=== PATIENT | female | born 1950 | race Caucasian/White ===

== ENCOUNTER 2022-06-20 15:04 | Inpatient (IN) | payer MEDICARE, OTHER ==
[~2022-06-20] VITALS: Ht 167.6 cm; Wt 58.9 kg
[2022-06-20] MEDS ORDERED: EZET10TA21 PO (16:05)
[2022-06-20] MEDS ORDERED: LISI10TA22 PO (16:05)
[2022-06-20] MEDS ORDERED: HYDR12.55 PO (16:05)
[2022-06-20] MEDS ORDERED: SIMV10TA21 PO (16:05)
[2022-06-20] MEDS: NS 1,000 ML IV ONE (16:58)
[2022-06-20 17:01] LABS: BASO % 0.1 % (0.0-1.0); HEMATOCRIT 37.4 % (36.0-47.0); HEMOGLOBIN 12.2 g/dl (12.0-15.5); LYMPH # 0.9 10^3/uL (1.5-5.0); LYMPH % 8.7 % (24.0-44.0); MEAN CORPUSCULAR HEMOGLOBIN 32.7 pg (27.0-33.0); MEAN CORPUSCULAR HGB CONC 32.6 g/dl (32.0-36.5); MEAN CORPUSCULAR VOLUME 100.3 fl (80.0-96.0); MONO # 0.5 10^3/uL (0.0-0.8); MONO % 5.1 % (2.0-8.0); NEUTROPHILS # 8.9 10^3/uL (1.5-8.5); NEUTROPHILS % 85.5 % (36.0-66.0); PLATELET COUNT, AUTOMATED 126 10^3/uL (150-450); RED BLOOD COUNT 3.73 10^6/uL (4.00-5.40); WHITE BLOOD COUNT 10.4 10^3/uL (4.0-10.0)
[2022-06-20 17:14] LABS: INR 0.91; PROTHROMBIN TIME 12.4 SECONDS (12.5-14.5)
[2022-06-20 17:15] LABS: PARTIAL THROMBOPLASTIN TIME 29.4 SECONDS (24.8-34.2)
[2022-06-20] MEDS: METOPROLOL TART 25 MG TABLET PO ONE (17:16)
[2022-06-20 17:20] LABS: ALBUMIN 2.2 G/DL (3.2-5.2); ALKALINE PHOSPHATASE 70 U/L (46-116); ALT/SGPT < 9 U/L (7.0-40); AST/SGOT 12 U/L (<34); BILIRUBIN,DIRECT 0.5 MG/DL (<0.4); BILIRUBIN,TOTAL 0.9 MG/DL (0.3-1.2); BLOOD UREA NITROGEN 22 MG/DL (9-23); CARBON DIOXIDE LEVEL 27 MMOL/L (20-31); CHLORIDE LEVEL 102 MMOL/L (98-107); GLOMERULAR FILTRATION RATE > 60.0 (>39); GLUCOSE, FASTING 91 MG/DL (74-106); MAGNESIUM LEVEL 1.7 MG/DL (1.8-2.4); POTASSIUM SERUM 3.8 MMOL/L (3.5-5.1); SODIUM LEVEL 141 MMOL/L (136-145); TOTAL PROTEIN 5.1 G/DL (5.7-8.2)
[2022-06-20 17:41] LABS: THYROID STIMULATING HORMONE 1.153 uIU/ML (0.55-4.78)
[2022-06-20] MEDS: APIXABAN 2.5 MG TAB (ELIQUIS) PO ONE (18:53)
[2022-06-20] MEDS: DIGOXIN INJ 0.5 MG/2 ML AMP IV ONE (18:54)
[2022-06-20] MEDS ORDERED: MED REC COMMENT (19:34)
[2022-06-20] MEDS ORDERED: HOME MED LIST COMPLETE! XX SCH (19:35)
[2022-06-20 19:41] LABS: ETHYL ALCOHOL (ETHANOL) 0.005 % (0.000-0.010)
[2022-06-20 19:43] LABS: RSV AMPLIFICATION NEGATIVE (NEGATIVE)
[2022-06-20] MEDS: POTASSIUM CHLORIDE 10MEQ SR TABLET PO ONE (20:06)
[2022-06-20] MEDS: MAG SULF 1GM/100ML (MAG RUN) 1 GM in IV 1 EA IV ONE (20:06)
[2022-06-20] MEDS: LR 1,000 ML IV SCH (20:07)
[2022-06-21] VITALS (9 sets, daily range): BP systolic 92–111; BP diastolic 55–66; TEMP 97–98.8; O2SAT 92–97
[2022-06-21] MEDS: DIGOXIN INJ 0.5 MG/2 ML AMP IV SCH
[2022-06-21 05:55] LABS: HEMATOCRIT 33.6 % (36.0-47.0); HEMOGLOBIN 10.9 g/dl (12.0-15.5); MEAN CORPUSCULAR HEMOGLOBIN 32.9 pg (27.0-33.0); MEAN CORPUSCULAR HGB CONC 32.4 g/dl (32.0-36.5); MEAN CORPUSCULAR VOLUME 101.5 fl (80.0-96.0); PLATELET COUNT, AUTOMATED 119 10^3/uL (150-450); RED BLOOD COUNT 3.31 10^6/uL (4.00-5.40); WHITE BLOOD COUNT 8.6 10^3/uL (4.0-10.0)
[2022-06-21 06:24] LABS: BLOOD UREA NITROGEN 19 MG/DL (9-23); CALCIUM LEVEL 7.2 MG/DL (8.3-10.6); CARBON DIOXIDE LEVEL 31 MMOL/L (20-31); CHLORIDE LEVEL 105 MMOL/L (98-107); CHOLESTEROL LEVEL 150 MG/DL (<200); CHOLESTEROL RISK RATIO 4.58 (<5); CREATININE FOR GFR 0.71 MG/DL (0.55-1.30); GLOMERULAR FILTRATION RATE > 60.0 (>39); GLUCOSE, FASTING 150 MG/DL (74-106); HDL CHOLESTEROL 32.7 MG/DL (>40); LDL CHOLESTEROL 94.7 MG/DL (<100); MAGNESIUM LEVEL 1.8 MG/DL (1.8-2.4); NON-HDL-C 117.3 MG/DL; POTASSIUM SERUM 3.5 MMOL/L (3.5-5.1); SODIUM LEVEL 141 MMOL/L (136-145); TRIGLYCERIDES LEVEL 113 MG/DL (<150)
[2022-06-21 06:32] LABS: AMPHETAMINES LEVEL URINE NEGATIVE (NEGATIVE); BARBITURATES URINE NEGATIVE (NEGATIVE); BENZODIAZEPINES URINE NEGATIVE (NEGATIVE); CANNABINOIDS URINE NEGATIVE (NEGATIVE); COCAINE METABOLITE URINE NEGATIVE (NEGATIVE); METHADONE URINE NEGATIVE (NEGATIVE); OPIATES URINE NEGATIVE (NEGATIVE); PHENCYCLIDINE URINE NEGATIVE (NEGATIVE)
[2022-06-21 07:12] LABS: AMORPHOUS SEDIMENT SMALL (NEGATIVE); APPEARANCE, URINE TURBID (CLEAR); BACTERIA, URINE AUTO NEGATIVE (NEGATIVE); BILIRUBIN, URINE AUTO NEGATIVE (NEGATIVE); BLOOD, URINE BLOOD 2+ (NEGATIVE); COLOR, URINE AMBER (YELLOW); GLUCOSE, URINE (UA) AUTO NEGATIVE (NEGATIVE); KETONE, URINE AUTO NEGATIVE (NEGATIVE); LEUKOCYTE ESTERASE, URINE AUTO 3+ (NEGATIVE); MUCUS, URINE SMALL (NEGATIVE); NITRITE, URINE AUTO NEGATIVE (NEGATIVE); PROTEIN, URINE AUTO 2+ mg/dL (NEGATIVE); RBC, URINE AUTO 37 /HPF (0-3); SPECIFIC GRAVITY URINE AUTO 1.014 (1.002-1.035); SQUAMOUS EPITHELIAL CELL UR AU 1 /HPF (0-6); URIC ACID CRYSTALS MODERATE; WBC, URINE AUTO 151 /HPF (0-3)
[2022-06-21] MEDS ORDERED: FOLIC ACID 1MG TAB PO SCH (09:00)
[2022-06-21] MEDS: THIAMINE 200MG 2ML VIAL IV SCH (10:20)
[2022-06-21 10:53] LABS: VITAMIN B12 LEVEL 260 PG/ML (211-911)
[2022-06-21 10:54] LABS: FOLATE 5.1 NG/ML (>5.4)
[2022-06-21] MEDS: MULTIVITAMINS/MINERALS THERAP 1 TAB PO SCH (14:17)
[2022-06-21] MEDS: FOLIC ACID 1 MG in NS 50 ML IV ONE (14:17)
[2022-06-21] MEDS: SIMVASTATIN 10 MG TAB PO SCH (14:17)
[2022-06-21] MEDS: METOPROLOL TART 12.5 MG PER 1/2 TAB PO SCH (20:24)
[2022-06-22] VITALS (8 sets, daily range): BP systolic 90–120; BP diastolic 48–84; TEMP 97.5–98.6; O2SAT 94–96
[2022-06-22] MEDS: SODIUM CHLORIDE 0.9% 1000ML IV ONE (04:07)
[2022-06-22 06:20] LABS: BASO % 0.1 % (0.0-1.0); EOS % 0.1 % (0.0-3.0); HEMATOCRIT 30.9 % (36.0-47.0); HEMOGLOBIN 9.9 g/dl (12.0-15.5); LYMPH % 25.8 % (24.0-44.0); MEAN CORPUSCULAR HEMOGLOBIN 32.8 pg (27.0-33.0); MEAN CORPUSCULAR VOLUME 102.3 fl (80.0-96.0); MONO # 0.5 10^3/uL (0.0-0.8); MONO % 6.2 % (2.0-8.0); NEUTROPHILS # 5.3 10^3/uL (1.5-8.5); NEUTROPHILS % 67.2 % (36.0-66.0); PLATELET COUNT, AUTOMATED 105 10^3/uL (150-450); RED BLOOD COUNT 3.02 10^6/uL (4.00-5.40); WHITE BLOOD COUNT 7.9 10^3/uL (4.0-10.0)
[2022-06-22 06:43] LABS: DIGOXIN LEVEL 1.2 NG/ML (0.8-2.0)
[2022-06-22 06:47] LABS: ALBUMIN 1.7 G/DL (3.2-5.2); ALKALINE PHOSPHATASE 55 U/L (46-116); ALT/SGPT < 9 U/L (7.0-40); AST/SGOT 10 U/L (<34); BILIRUBIN,TOTAL 0.4 MG/DL (0.3-1.2); BLOOD UREA NITROGEN 14 MG/DL (9-23); CALCIUM LEVEL 7.1 MG/DL (8.3-10.6); CARBON DIOXIDE LEVEL 28 MMOL/L (20-31); CHLORIDE LEVEL 107 MMOL/L (98-107); CREATININE FOR GFR 0.78 MG/DL (0.55-1.30); GLOMERULAR FILTRATION RATE > 60.0 (>39); GLUCOSE, FASTING 74 MG/DL (74-106); MAGNESIUM LEVEL 1.6 MG/DL (1.8-2.4); POTASSIUM SERUM 3.2 MMOL/L (3.5-5.1); SODIUM LEVEL 141 MMOL/L (136-145); TOTAL PROTEIN 4.1 G/DL (5.7-8.2)
[2022-06-22] MEDS: ENOXAPARIN 40MG/0.4ML SYRINGE (J1650 PER 10MG) SC SCH (08:21)
[2022-06-22] MEDS: FOLIC ACID 1MG TAB PO SCH (08:22)
[2022-06-22] MEDS: MAGNESIUM OXIDE 400MG TAB (MAG-OX) PO ONE (08:22)
[2022-06-22] MEDS: DIGOXIN 0.125 MG TAB PO SCH (08:22)
[2022-06-22] MEDS: POTASSIUM CHLORIDE 10MEQ SR TABLET PO ONE (08:32)
[2022-06-22] MEDS ORDERED: ENOXAPARIN 30MG/0.3ML SYRINGE (J1650 PER 10MG) SC SCH (09:00)
[2022-06-23] VITALS (7 sets, daily range): BP systolic 91–101; BP diastolic 48–66; TEMP 97.9–98.6; O2SAT 93–98
[2022-06-23 07:08] LABS: BASO % 0.1 % (0.0-1.0); EOS % 0.2 % (0.0-3.0); HEMATOCRIT 29.2 % (36.0-47.0); HEMOGLOBIN 9.4 g/dl (12.0-15.5); LYMPH % 22.2 % (24.0-44.0); MEAN CORPUSCULAR HEMOGLOBIN 32.5 pg (27.0-33.0); MEAN CORPUSCULAR HGB CONC 32.2 g/dl (32.0-36.5); MONO # 0.5 10^3/uL (0.0-0.8); MONO % 5.9 % (2.0-8.0); NEUTROPHILS # 6.4 10^3/uL (1.5-8.5); NEUTROPHILS % 70.7 % (36.0-66.0); RED BLOOD COUNT 2.89 10^6/uL (4.00-5.40); WHITE BLOOD COUNT 9.1 10^3/uL (4.0-10.0)
[2022-06-23 07:11] LABS: PLATELET COUNT, AUTOMATED 96 10^3/uL (150-450)
[2022-06-23 07:30] LABS: ALBUMIN 1.9 G/DL (3.2-5.2); ALKALINE PHOSPHATASE 52 U/L (46-116); ALT/SGPT < 9 U/L (7.0-40); AST/SGOT 8 U/L (<34); BILIRUBIN,TOTAL 0.4 MG/DL (0.3-1.2); BLOOD UREA NITROGEN 11 MG/DL (9-23); CALCIUM LEVEL 7.3 MG/DL (8.3-10.6); CARBON DIOXIDE LEVEL 30 MMOL/L (20-31); CHLORIDE LEVEL 107 MMOL/L (98-107); CREATININE FOR GFR 0.77 MG/DL (0.55-1.30); GLOMERULAR FILTRATION RATE > 60.0 (>39); GLUCOSE, FASTING 95 MG/DL (74-106); MAGNESIUM LEVEL 1.7 MG/DL (1.8-2.4); POTASSIUM SERUM 3.7 MMOL/L (3.5-5.1); SODIUM LEVEL 139 MMOL/L (136-145); TOTAL PROTEIN 4.3 G/DL (5.7-8.2)
[2022-06-23] MEDS: MAGNESIUM OXIDE 400MG TAB (MAG-OX) PO ONE (09:53)
[2022-06-23] MEDS: ACETAMINOPHEN TAB 650MG DOSE (2X325MG) PO PRN (20:20)
[2022-06-24 06:37] VITALS: BP 107/73; TEMP 98.1; O2SAT 96
[2022-06-24 07:01] LABS: BASO % 0.1 % (0.0-1.0); EOS % 0.4 % (0.0-3.0); HEMATOCRIT 30.1 % (36.0-47.0); HEMOGLOBIN 9.5 g/dl (12.0-15.5); LYMPH # 2.9 10^3/uL (1.5-5.0); MEAN CORPUSCULAR HEMOGLOBIN 32.5 pg (27.0-33.0); MEAN CORPUSCULAR HGB CONC 31.6 g/dl (32.0-36.5); MEAN CORPUSCULAR VOLUME 103.1 fl (80.0-96.0); MONO # 0.6 10^3/uL (0.0-0.8); MONO % 5.4 % (2.0-8.0); NEUTROPHILS # 7.6 10^3/uL (1.5-8.5); NEUTROPHILS % 67.5 % (36.0-66.0); PLATELET COUNT, AUTOMATED 110 10^3/uL (150-450); RED BLOOD COUNT 2.92 10^6/uL (4.00-5.40); WHITE BLOOD COUNT 11.2 10^3/uL (4.0-10.0)
[2022-06-24 07:34] LABS: ALBUMIN 1.8 G/DL (3.2-5.2); ALKALINE PHOSPHATASE 53 U/L (46-116); ALT/SGPT < 9 U/L (7.0-40); AST/SGOT 12 U/L (<34); BILIRUBIN,TOTAL 0.3 MG/DL (0.3-1.2); BLOOD UREA NITROGEN 17 MG/DL (9-23); CALCIUM LEVEL 7.3 MG/DL (8.3-10.6); CARBON DIOXIDE LEVEL 30 MMOL/L (20-31); CHLORIDE LEVEL 106 MMOL/L (98-107); CREATININE FOR GFR 0.85 MG/DL (0.55-1.30); GLOMERULAR FILTRATION RATE > 60.0 (>39); GLUCOSE, FASTING 77 MG/DL (74-106); MAGNESIUM LEVEL 1.8 MG/DL (1.8-2.4); POTASSIUM SERUM 4.1 MMOL/L (3.5-5.1); SODIUM LEVEL 141 MMOL/L (136-145); TOTAL PROTEIN 3.9 G/DL (5.7-8.2)
[2022-06-24 07:50] VITALS: BP 107/73
[2022-06-24] MEDS: MIDODRINE 5 MG TAB PO SCH (09:36)
[2022-06-24] MEDS: APIXABAN 5 MG TAB (ELIQUIS) PO SCH (10:17)
[2022-06-24] MEDS: LORazepam 2 MG TAB PO PRN (10:18)
[2022-06-24] MEDS: NS 1,000 ML IV ONE ×2 (10:18→12:10)
[2022-06-24 10:30] VITALS: BP 101/73; TEMP 98.2; O2SAT 95
[2022-06-24] MEDS: METOPROLOL TART 25 MG TABLET PO SCH (10:47)
[2022-06-24] MEDS: DIGOXIN INJ 0.5 MG/2 ML AMP IV STA (11:32)
[2022-06-24 11:47] VITALS: BP 102/73; TEMP 98.1; O2SAT 98
[2022-06-24 14:00] VITALS: BP_SYST 104; BP_SYST 97; BP_DIAS 65; BP_DIAS 70; TEMP 98.4; O2SAT 98
[2022-06-24] MEDS: DIGOXIN INJ 0.5 MG/2 ML AMP IV ONE ×2 (14:48→19:54)
[2022-06-24 21:30] VITALS: BP 97/65; TEMP 97.9; O2SAT 97
[2022-06-25] VITALS (11 sets, daily range): BP systolic 90–130; BP diastolic 50–84; TEMP 97.9–103.1; O2SAT 92–98
[2022-06-25 06:11] LABS: BASO % 0.3 % (0.0-1.0); EOS % 0.2 % (0.0-3.0); HEMATOCRIT 31.2 % (36.0-47.0); HEMOGLOBIN 9.7 g/dl (12.0-15.5); LYMPH # 2.8 10^3/uL (1.5-5.0); LYMPH % 23.4 % (24.0-44.0); MEAN CORPUSCULAR HEMOGLOBIN 32.3 pg (27.0-33.0); MEAN CORPUSCULAR HGB CONC 31.1 g/dl (32.0-36.5); MONO # 0.8 10^3/uL (0.0-0.8); MONO % 6.5 % (2.0-8.0); NEUTROPHILS # 8.1 10^3/uL (1.5-8.5); NEUTROPHILS % 68.7 % (36.0-66.0); PLATELET COUNT, AUTOMATED 122 10^3/uL (150-450); WHITE BLOOD COUNT 11.8 10^3/uL (4.0-10.0)
[2022-06-25 06:41] LABS: ALBUMIN 1.7 G/DL (3.2-5.2); ALKALINE PHOSPHATASE 56 U/L (46-116); ALT/SGPT 10 U/L (7.0-40); AST/SGOT < 8 U/L (<34); BILIRUBIN,TOTAL 0.4 MG/DL (0.3-1.2); BLOOD UREA NITROGEN 14 MG/DL (9-23); CALCIUM LEVEL 7.3 MG/DL (8.3-10.6); CARBON DIOXIDE LEVEL 30 MMOL/L (20-31); CHLORIDE LEVEL 108 MMOL/L (98-107); CREATININE FOR GFR 0.78 MG/DL (0.55-1.30); DIGOXIN LEVEL 1.6 NG/ML (0.8-2.0); GLOMERULAR FILTRATION RATE > 60.0 (>39); GLUCOSE, FASTING 90 MG/DL (74-106); MAGNESIUM LEVEL 1.7 MG/DL (1.8-2.4); SODIUM LEVEL 142 MMOL/L (136-145)
[2022-06-25] MEDS: NS 1,000 ML IV ONE ×4 (08:01→23:54)
[2022-06-25] MEDS: DIGOXIN INJ 0.5 MG/2 ML AMP IV STA (08:14)
[2022-06-25] MEDS: MAG SULF 1GM/100ML (MAG RUN) 1 GM in IV 1 EA IV ONE (10:38)
[2022-06-25] MEDS: cefTRIAXone SOD 1 GM in D5W MINI-BAG PLUS 50 ML IV SCH (11:55)
[2022-06-25 12:30] LABS: C REACTIVE PROTEIN QUANTITATIV 5.6 MG/DL (<1.0); MAGNESIUM LEVEL 1.8 MG/DL (1.8-2.4)
[2022-06-25] MEDS: MIDODRINE 5 MG TAB PO ONE (14:52)
[2022-06-25] MEDS: METOPROLOL TART 12.5 MG PER 1/2 TAB PO SCH (17:22)
[2022-06-25] MEDS: LACTOBACILLUS ACIDOPHILUS CAP (BACID) PO SCH (17:27)
[2022-06-25] MEDS: NS 1,000 ML IV SCH (17:28)
[2022-06-25] MEDS: METOPROLOL 5 MG/5 ML VIAL IV SCH (20:02)
[2022-06-25] MEDS: NS 500 ML IV ONE (20:33)
[2022-06-25 20:53] LABS: BLOOD UREA NITROGEN 16 MG/DL (9-23); CARBON DIOXIDE LEVEL 25 MMOL/L (20-31); CHLORIDE LEVEL 112 MMOL/L (98-107); CK-MB VALUE MASS < 1.0 NG/ML (<3.6); CREATININE FOR GFR 0.81 MG/DL (0.55-1.30); GLOMERULAR FILTRATION RATE > 60.0 (>39); GLUCOSE, FASTING 108 MG/DL (74-106); MAGNESIUM LEVEL 1.6 MG/DL (1.8-2.4); POTASSIUM SERUM 3.8 MMOL/L (3.5-5.1); SODIUM LEVEL 143 MMOL/L (136-145)
[2022-06-25 20:55] LABS: CPK CREATINE PHOSPHOKINASE < 15 U/L (34-145)
[2022-06-25] MEDS: PIPERACILLIN/TAZOBACTAM SOD 3.375 GM in D5W MINI-BAG PLUS 50 ML IV SCH (21:09)
[2022-06-25] MEDS: IBUPROFEN 400MG TAB PO ONE (21:09)
[2022-06-25] MEDS: MAG SULF 1GM/100ML (MAG RUN) 1 GM in IV 1 EA IV SCH (21:48)
[2022-06-26] VITALS (15 sets, daily range): BP systolic 82–144; BP diastolic 50–88; TEMP 96.1–98; O2SAT 92–95
[2022-06-26] MEDS ORDERED: IPRATROPIUM 0.5MG/ALBUTEROL 2.5MG INH SOL UD 3ML (DUONEB) NEB PRN (00:35)
[2022-06-26] MEDS: MIDODRINE 5 MG TAB PO ONE (01:09)
[2022-06-26] MEDS: NS 1,000 ML IV ONE (01:09)
[2022-06-26 05:15] LABS: BASO % 0.2 % (0.0-1.0); EOS % 0.1 % (0.0-3.0); HEMATOCRIT 31.1 % (36.0-47.0); HEMOGLOBIN 9.6 g/dl (12.0-15.5); LYMPH # 2.3 10^3/uL (1.5-5.0); LYMPH % 12.2 % (24.0-44.0); MEAN CORPUSCULAR HEMOGLOBIN 33.1 pg (27.0-33.0); MEAN CORPUSCULAR HGB CONC 30.9 g/dl (32.0-36.5); MEAN CORPUSCULAR VOLUME 107.2 fl (80.0-96.0); MONO % 5.3 % (2.0-8.0); NEUTROPHILS # 15.2 10^3/uL (1.5-8.5); NEUTROPHILS % 81.4 % (36.0-66.0); PLATELET COUNT, AUTOMATED 136 10^3/uL (150-450); WHITE BLOOD COUNT 18.6 10^3/uL (4.0-10.0)
[2022-06-26 05:39] LABS: DIGOXIN LEVEL 1.2 NG/ML (0.8-2.0)
[2022-06-26 05:42] LABS: ALBUMIN 1.4 G/DL (3.2-5.2); ALKALINE PHOSPHATASE 56 U/L (46-116); ALT/SGPT 12 U/L (7.0-40); AST/SGOT 10 U/L (<34); BILIRUBIN,TOTAL 0.3 MG/DL (0.3-1.2); BLOOD UREA NITROGEN 18 MG/DL (9-23); CALCIUM LEVEL 6.8 MG/DL (8.3-10.6); CARBON DIOXIDE LEVEL 21 MMOL/L (20-31); CHLORIDE LEVEL 114 MMOL/L (98-107); CREATININE FOR GFR 0.83 MG/DL (0.55-1.30); GLOMERULAR FILTRATION RATE > 60.0 (>39); GLUCOSE, FASTING 103 MG/DL (74-106); MAGNESIUM LEVEL 2.1 MG/DL (1.8-2.4); POTASSIUM SERUM 3.9 MMOL/L (3.5-5.1); SODIUM LEVEL 142 MMOL/L (136-145); TOTAL PROTEIN 3.6 G/DL (5.7-8.2)
[2022-06-26] MEDS: DIGOXIN 0.125 MG TAB PO SCH (08:06)
[2022-06-26 21:00] LABS: HEMATOCRIT 28.6 % (36.0-47.0); HEMOGLOBIN 9.1 g/dl (12.0-15.5)
[2022-06-26 21:26] LABS: BLOOD UREA NITROGEN 20 MG/DL (9-23); CALCIUM LEVEL 7.4 MG/DL (8.3-10.6); CARBON DIOXIDE LEVEL 26 MMOL/L (20-31); CHLORIDE LEVEL 113 MMOL/L (98-107); CPK CREATINE PHOSPHOKINASE < 15 U/L (34-145); CREATININE FOR GFR 1.02 MG/DL (0.55-1.30); GLOMERULAR FILTRATION RATE 56.9 (>39); GLUCOSE, FASTING 104 MG/DL (74-106); POTASSIUM SERUM 3.8 MMOL/L (3.5-5.1); SODIUM LEVEL 144 MMOL/L (136-145)
[2022-06-27] VITALS (14 sets, daily range): BP systolic 92–142; BP diastolic 54–80; TEMP 96.9–98.7; O2SAT 92–95
[2022-06-27 06:08] LABS: BASO % 0.3 % (0.0-1.0); EOS % 0.3 % (0.0-3.0); HEMATOCRIT 29.4 % (36.0-47.0); HEMOGLOBIN 9.2 g/dl (12.0-15.5); LYMPH # 3.2 10^3/uL (1.5-5.0); LYMPH % 27.7 % (24.0-44.0); MEAN CORPUSCULAR HEMOGLOBIN 32.3 pg (27.0-33.0); MEAN CORPUSCULAR HGB CONC 31.3 g/dl (32.0-36.5); MEAN CORPUSCULAR VOLUME 103.2 fl (80.0-96.0); MONO # 0.7 10^3/uL (0.0-0.8); MONO % 5.9 % (2.0-8.0); NEUTROPHILS # 7.5 10^3/uL (1.5-8.5); NEUTROPHILS % 65.2 % (36.0-66.0); PLATELET COUNT, AUTOMATED 157 10^3/uL (150-450); RED BLOOD COUNT 2.85 10^6/uL (4.00-5.40); WHITE BLOOD COUNT 11.4 10^3/uL (4.0-10.0)
[2022-06-27 06:24] LABS: ALBUMIN 1.5 G/DL (3.2-5.2); ALKALINE PHOSPHATASE 56 U/L (46-116); ALT/SGPT 11 U/L (7.0-40); AST/SGOT 9 U/L (<34); BILIRUBIN,TOTAL 0.3 MG/DL (0.3-1.2); BLOOD UREA NITROGEN 17 MG/DL (9-23); CALCIUM LEVEL 7.7 MG/DL (8.3-10.6); CARBON DIOXIDE LEVEL 24 MMOL/L (20-31); CHLORIDE LEVEL 113 MMOL/L (98-107); CREATININE FOR GFR 0.94 MG/DL (0.55-1.30); GLOMERULAR FILTRATION RATE > 60.0 (>39); GLUCOSE, FASTING 94 MG/DL (74-106); MAGNESIUM LEVEL 1.9 MG/DL (1.8-2.4); POTASSIUM SERUM 3.8 MMOL/L (3.5-5.1); SODIUM LEVEL 142 MMOL/L (136-145); TOTAL PROTEIN 4.2 G/DL (5.7-8.2)
[2022-06-27 06:32] LABS: INR 1.03; PROTHROMBIN TIME 13.7 SECONDS (12.5-14.5)
[2022-06-27 06:33] LABS: PARTIAL THROMBOPLASTIN TIME 36.6 SECONDS (24.8-34.2)
[2022-06-27 08:32] LABS: DIGOXIN LEVEL 0.7 NG/ML (0.8-2.0)
[2022-06-27] MEDS ORDERED: AMIODARONE 100MG TABLET (PACERONE) PO SCH (09:00)
[2022-06-27] MEDS: DIGOXIN INJ 0.5 MG/2 ML AMP IV SCH (10:18)
[2022-06-27 12:19] LABS: HEMATOCRIT 29.5 % (36.0-47.0); HEMOGLOBIN 9.3 g/dl (12.0-15.5)
[2022-06-27 17:53] LABS: HEMATOCRIT 29.9 % (36.0-47.0); HEMOGLOBIN 9.4 g/dl (12.0-15.5)
[2022-06-27] MEDS: D5W 1,000 ML IV SCH (18:12)
[2022-06-28] VITALS (11 sets, daily range): BP systolic 104–140; BP diastolic 58–102; TEMP 97–97.9; O2SAT 93–97
[2022-06-28 00:43] LABS: HEMATOCRIT 28.7 % (36.0-47.0); HEMOGLOBIN 9.2 g/dl (12.0-15.5)
[2022-06-28 05:43] LABS: BASO % 0.4 % (0.0-1.0); EOS % 0.5 % (0.0-3.0); HEMATOCRIT 27.1 % (36.0-47.0); HEMOGLOBIN 8.5 g/dl (12.0-15.5); LYMPH % 27.3 % (24.0-44.0); MEAN CORPUSCULAR HEMOGLOBIN 32.4 pg (27.0-33.0); MEAN CORPUSCULAR HGB CONC 31.4 g/dl (32.0-36.5); MEAN CORPUSCULAR VOLUME 103.4 fl (80.0-96.0); MONO # 0.5 10^3/uL (0.0-0.8); NEUTROPHILS # 4.8 10^3/uL (1.5-8.5); NEUTROPHILS % 64.3 % (36.0-66.0); PLATELET COUNT, AUTOMATED 141 10^3/uL (150-450); RED BLOOD COUNT 2.62 10^6/uL (4.00-5.40); WHITE BLOOD COUNT 7.5 10^3/uL (4.0-10.0)
[2022-06-28 06:08] LABS: DIGOXIN LEVEL 0.9 NG/ML (0.8-2.0)
[2022-06-28 06:15] LABS: ALBUMIN 1.5 G/DL (3.2-5.2); ALKALINE PHOSPHATASE 49 U/L (46-116); ALT/SGPT 13 U/L (7.0-40); AST/SGOT 19 U/L (<34); BILIRUBIN,TOTAL 0.3 MG/DL (0.3-1.2); BLOOD UREA NITROGEN 15 MG/DL (9-23); CALCIUM LEVEL 7.1 MG/DL (8.3-10.6); CARBON DIOXIDE LEVEL 25 MMOL/L (20-31); CHLORIDE LEVEL 111 MMOL/L (98-107); CREATININE FOR GFR 0.78 MG/DL (0.55-1.30); GLOMERULAR FILTRATION RATE > 60.0 (>39); GLUCOSE, FASTING 96 MG/DL (74-106); MAGNESIUM LEVEL 1.7 MG/DL (1.8-2.4); POTASSIUM SERUM 3.5 MMOL/L (3.5-5.1); SODIUM LEVEL 143 MMOL/L (136-145); TOTAL PROTEIN 3.9 G/DL (5.7-8.2)
[2022-06-28] MEDS: DIGOXIN 0.125 MG TAB PO SCH (09:40)
[2022-06-29 00:33] LABS: HEMATOCRIT 28.7 % (36.0-47.0); HEMOGLOBIN 9.2 g/dl (12.0-15.5)
[2022-06-29 06:00] VITALS: BP 115/71; TEMP 97.9; O2SAT 96
[2022-06-29 11:30] LABS: BLOOD UREA NITROGEN 9 MG/DL (9-23); CALCIUM LEVEL 7.2 MG/DL (8.3-10.6); CARBON DIOXIDE LEVEL 30 MMOL/L (20-31); CHLORIDE LEVEL 108 MMOL/L (98-107); CREATININE FOR GFR 0.83 MG/DL (0.55-1.30); GLOMERULAR FILTRATION RATE > 60.0 (>39); GLUCOSE, FASTING 106 MG/DL (74-106); MAGNESIUM LEVEL 1.6 MG/DL (1.8-2.4); POTASSIUM SERUM 3.2 MMOL/L (3.5-5.1); SODIUM LEVEL 141 MMOL/L (136-145)
[2022-06-29 11:58] VITALS: BP 98/56
[2022-06-29] MEDS: POTASSIUM CHLORIDE 10MEQ SR TABLET PO SCH (13:47)
[2022-06-29] MEDS: MAGNESIUM OXIDE 400MG TAB (MAG-OX) PO SCH (13:47)
[2022-06-29 14:00] VITALS: BP 132/75; TEMP 97.5; O2SAT 96
[2022-06-29 14:09] LABS: BODY FLUID CULTURE Not indicated. (.); LEGIONELLA ANTIGEN URINE Negative (Negative); ORGANISM ID Not indicated. (.); SPECIMEN SOURCE Urine (.); URINE STREP PNEUMONIAE ANTIGEN Negative (Negative)
[2022-06-29] MEDS: LevoFLOXacin 750 MG TABLET PO SCH (14:54)
[2022-06-29] MEDS: DIGOXIN INJ 0.5 MG/2 ML AMP IV STA (17:52)
[2022-06-29 20:00] VITALS: BP_SYST 103; BP_SYST 108; BP_DIAS 64; BP_DIAS 65; TEMP 98.1; O2SAT 95; O2SAT 97
[2022-06-30 06:00] VITALS: BP 121/71; TEMP 97.7; O2SAT 95
[2022-06-30 07:16] LABS: HEMATOCRIT 27.6 % (36.0-47.0); HEMOGLOBIN 8.8 g/dl (12.0-15.5); MEAN CORPUSCULAR HGB CONC 31.9 g/dl (32.0-36.5); MEAN CORPUSCULAR VOLUME 103.4 fl (80.0-96.0); PLATELET COUNT, AUTOMATED 136 10^3/uL (150-450); RED BLOOD COUNT 2.67 10^6/uL (4.00-5.40); WHITE BLOOD COUNT 6.6 10^3/uL (4.0-10.0)
[2022-06-30 07:36] LABS: BLOOD UREA NITROGEN 7 MG/DL (9-23); CALCIUM LEVEL 7.6 MG/DL (8.3-10.6); CARBON DIOXIDE LEVEL 31 MMOL/L (20-31); CHLORIDE LEVEL 107 MMOL/L (98-107); CREATININE FOR GFR 0.68 MG/DL (0.55-1.30); DIGOXIN LEVEL 1.2 NG/ML (0.8-2.0); GLOMERULAR FILTRATION RATE > 60.0 (>39); GLUCOSE, FASTING 85 MG/DL (74-106); POTASSIUM SERUM 3.4 MMOL/L (3.5-5.1); SODIUM LEVEL 142 MMOL/L (136-145)
[2022-06-30] MEDS: POTASSIUM CHLORIDE 10MEQ SR TABLET PO SCH (08:07)
[2022-06-30 08:20] LABS: MAGNESIUM LEVEL 1.6 MG/DL (1.8-2.4)
[2022-06-30] MEDS: DIGOXIN INJ 0.5 MG/2 ML AMP IV STA (08:48)
[2022-06-30] MEDS: MAG SULF 1GM/100ML (MAG RUN) 1 GM in IV 1 EA IV ONE (08:50)
[2022-06-30 14:00] VITALS: BP 99/68; TEMP 97.7; O2SAT 94
[2022-06-30] MEDS: ASPIRIN 81MG CHEW TABLET PO SCH (15:05)
[2022-06-30 20:00] VITALS: BP 124/76; TEMP 97.7; O2SAT 95
[2022-07-01 06:00] VITALS: BP 110/71; TEMP 97.5; O2SAT 95
[2022-07-01 06:58] LABS: HEMATOCRIT 26.3 % (36.0-47.0); HEMOGLOBIN 8.3 g/dl (12.0-15.5); MEAN CORPUSCULAR HEMOGLOBIN 32.7 pg (27.0-33.0); MEAN CORPUSCULAR HGB CONC 31.6 g/dl (32.0-36.5); MEAN CORPUSCULAR VOLUME 103.5 fl (80.0-96.0); PLATELET COUNT, AUTOMATED 140 10^3/uL (150-450); RED BLOOD COUNT 2.54 10^6/uL (4.00-5.40); WHITE BLOOD COUNT 6.2 10^3/uL (4.0-10.0)
[2022-07-01 07:27] LABS: DIGOXIN LEVEL 1.8 NG/ML (0.8-2.0)
[2022-07-01 07:28] LABS: BLOOD UREA NITROGEN 6 MG/DL (9-23); CALCIUM LEVEL 7.6 MG/DL (8.3-10.6); CARBON DIOXIDE LEVEL 33 MMOL/L (20-31); CHLORIDE LEVEL 108 MMOL/L (98-107); CREATININE FOR GFR 0.69 MG/DL (0.55-1.30); GLOMERULAR FILTRATION RATE > 60.0 (>39); GLUCOSE, FASTING 92 MG/DL (74-106); POTASSIUM SERUM 4.3 MMOL/L (3.5-5.1); SODIUM LEVEL 142 MMOL/L (136-145)
[2022-07-01] MEDS: DIGOXIN 0.125 MG TAB PO SCH (08:00)
[2022-07-01] MEDS: MIDODRINE 5 MG TAB PO SCH (09:06)
[2022-07-01] MEDS: NS 500 ML IV ONE (09:06)
[2022-07-01] MEDS: METOPROLOL TART 12.5 MG PER 1/2 TAB PO ONE (09:07)
[2022-07-01 14:00] VITALS: BP 94/56; TEMP 98.1; O2SAT 95
[2022-07-01 15:46] VITALS: BP 101/57
[2022-07-01 21:47] VITALS: BP 101/63; TEMP 98.8; O2SAT 93
[2022-07-02 05:47] VITALS: BP 105/64; TEMP 97; O2SAT 93
[2022-07-02 06:26] LABS: HEMATOCRIT 26.8 % (36.0-47.0); HEMOGLOBIN 8.3 g/dl (12.0-15.5); MEAN CORPUSCULAR HEMOGLOBIN 32.4 pg (27.0-33.0); MEAN CORPUSCULAR VOLUME 104.7 fl (80.0-96.0); PLATELET COUNT, AUTOMATED 136 10^3/uL (150-450); RED BLOOD COUNT 2.56 10^6/uL (4.00-5.40); WHITE BLOOD COUNT 6.1 10^3/uL (4.0-10.0)
[2022-07-02 06:47] LABS: BLOOD UREA NITROGEN 9 MG/DL (9-23); CALCIUM LEVEL 8.1 MG/DL (8.3-10.6); CARBON DIOXIDE LEVEL 32 MMOL/L (20-31); CHLORIDE LEVEL 106 MMOL/L (98-107); CREATININE FOR GFR 0.76 MG/DL (0.55-1.30); DIGOXIN LEVEL 1.6 NG/ML (0.8-2.0); GLOMERULAR FILTRATION RATE > 60.0 (>39); GLUCOSE, FASTING 82 MG/DL (74-106); POTASSIUM SERUM 4.3 MMOL/L (3.5-5.1); SODIUM LEVEL 142 MMOL/L (136-145)
[2022-07-02 14:14] VITALS: BP 92/58; TEMP 98.2; O2SAT 94
[2022-07-02 15:39] VITALS: BP 97/61
[2022-07-02 21:30] VITALS: BP 111/68; TEMP 99.3; O2SAT 92
[2022-07-03 06:00] VITALS: BP 105/63; TEMP 97.7; O2SAT 92
[2022-07-03 06:15] LABS: HEMOGLOBIN 8.2 g/dl (12.0-15.5); MEAN CORPUSCULAR HEMOGLOBIN 33.5 pg (27.0-33.0); MEAN CORPUSCULAR HGB CONC 31.5 g/dl (32.0-36.5); MEAN CORPUSCULAR VOLUME 106.1 fl (80.0-96.0); PLATELET COUNT, AUTOMATED 126 10^3/uL (150-450); RED BLOOD COUNT 2.45 10^6/uL (4.00-5.40); WHITE BLOOD COUNT 7.4 10^3/uL (4.0-10.0)
[2022-07-03 06:37] LABS: BLOOD UREA NITROGEN 11 MG/DL (9-23); CALCIUM LEVEL 7.9 MG/DL (8.3-10.6); CARBON DIOXIDE LEVEL 32 MMOL/L (20-31); CHLORIDE LEVEL 107 MMOL/L (98-107); CREATININE FOR GFR 0.96 MG/DL (0.55-1.30); GLOMERULAR FILTRATION RATE > 60.0 (>39); GLUCOSE, FASTING 85 MG/DL (74-106); POTASSIUM SERUM 4.2 MMOL/L (3.5-5.1); SODIUM LEVEL 142 MMOL/L (136-145)
[2022-07-03 08:29] VITALS: BP 105/64
[2022-07-03 14:00] VITALS: BP 103/58; TEMP 98.1; O2SAT 93
[2022-07-03 16:12] VITALS: BP 100/60
[2022-07-03 22:00] VITALS: BP 101/62; TEMP 98.4; O2SAT 93
[2022-07-04 05:40] VITALS: BP 105/62; TEMP 98.1; O2SAT 92
[2022-07-04 06:34] LABS: HEMATOCRIT 26.2 % (36.0-47.0); HEMOGLOBIN 8.3 g/dl (12.0-15.5); MEAN CORPUSCULAR HEMOGLOBIN 33.2 pg (27.0-33.0); MEAN CORPUSCULAR HGB CONC 31.7 g/dl (32.0-36.5); MEAN CORPUSCULAR VOLUME 104.8 fl (80.0-96.0); PLATELET COUNT, AUTOMATED 120 10^3/uL (150-450)
[2022-07-04 06:48] LABS: CALCIUM LEVEL 7.6 MG/DL (8.3-10.6); CREATININE FOR GFR 0.98 MG/DL (0.55-1.30); GLOMERULAR FILTRATION RATE 59.6 (>39); POTASSIUM SERUM 3.9 MMOL/L (3.5-5.1)
[2022-07-04] MEDS: APIXABAN 5 MG TAB (ELIQUIS) PO SCH (11:34)
[2022-07-04 14:00] VITALS: BP_SYST 107; BP_SYST 111; BP_DIAS 64; BP_DIAS 79; TEMP 98.2; O2SAT 93; O2SAT 99
[2022-07-04 20:00] VITALS: BP 108/62; TEMP 98.8; O2SAT 94
[2022-07-05 05:02] VITALS: BP 104/62; TEMP 98.4; O2SAT 91
[2022-07-05 05:57] LABS: HEMATOCRIT 28.4 % (36.0-47.0); HEMOGLOBIN 8.9 g/dl (12.0-15.5); MEAN CORPUSCULAR HEMOGLOBIN 32.5 pg (27.0-33.0); MEAN CORPUSCULAR HGB CONC 31.3 g/dl (32.0-36.5); MEAN CORPUSCULAR VOLUME 103.6 fl (80.0-96.0); PLATELET COUNT, AUTOMATED 126 10^3/uL (150-450); RED BLOOD COUNT 2.74 10^6/uL (4.00-5.40); WHITE BLOOD COUNT 7.9 10^3/uL (4.0-10.0)
[2022-07-05 06:27] LABS: BLOOD UREA NITROGEN 17 MG/DL (9-23); CALCIUM LEVEL 7.9 MG/DL (8.3-10.6); CARBON DIOXIDE LEVEL 30 MMOL/L (20-31); CHLORIDE LEVEL 106 MMOL/L (98-107); CREATININE FOR GFR 0.82 MG/DL (0.55-1.30); GLOMERULAR FILTRATION RATE > 60.0 (>39); GLUCOSE, FASTING 82 MG/DL (74-106); POTASSIUM SERUM 4.6 MMOL/L (3.5-5.1); SODIUM LEVEL 139 MMOL/L (136-145)
[2022-07-05 14:00] VITALS: BP 101/64; TEMP 97.7; O2SAT 95
[2022-07-05 21:20] VITALS: BP 119/67; TEMP 98.1; O2SAT 92
[2022-07-06 06:01] LABS: HEMATOCRIT 27.9 % (36.0-47.0); HEMOGLOBIN 8.8 g/dl (12.0-15.5); MEAN CORPUSCULAR HEMOGLOBIN 33.1 pg (27.0-33.0); MEAN CORPUSCULAR HGB CONC 31.5 g/dl (32.0-36.5); MEAN CORPUSCULAR VOLUME 104.9 fl (80.0-96.0); PLATELET COUNT, AUTOMATED 101 10^3/uL (150-450); RED BLOOD COUNT 2.66 10^6/uL (4.00-5.40); WHITE BLOOD COUNT 5.9 10^3/uL (4.0-10.0)
[2022-07-06 06:31] LABS: ALKALINE PHOSPHATASE 59 U/L (46-116); ALT/SGPT 15 U/L (7.0-40); AST/SGOT 16 U/L (<34); BILIRUBIN,TOTAL 0.5 MG/DL (0.3-1.2); BLOOD UREA NITROGEN 16 MG/DL (9-23); CALCIUM LEVEL 7.6 MG/DL (8.3-10.6); CARBON DIOXIDE LEVEL 29 MMOL/L (20-31); CHLORIDE LEVEL 107 MMOL/L (98-107); GLOMERULAR FILTRATION RATE > 60.0 (>39); GLUCOSE, FASTING 87 MG/DL (74-106); MAGNESIUM LEVEL 1.9 MG/DL (1.8-2.4); POTASSIUM SERUM 4.5 MMOL/L (3.5-5.1); SODIUM LEVEL 140 MMOL/L (136-145); TOTAL PROTEIN 4.3 G/DL (5.7-8.2)
[2022-07-06] MEDS ORDERED: NYSTATIN 100,000 UNITS/GM TOPICAL PWD 15GM TOP PRN (09:55)
[2022-07-06 20:47] VITALS: BP 101/61
[2022-07-07 06:02] VITALS: BP 98/60; TEMP 98.8; O2SAT 91
[2022-07-07 06:22] LABS: HEMATOCRIT 25.9 % (36.0-47.0); HEMOGLOBIN 8.2 g/dl (12.0-15.5); MEAN CORPUSCULAR HEMOGLOBIN 33.1 pg (27.0-33.0); MEAN CORPUSCULAR HGB CONC 31.7 g/dl (32.0-36.5); MEAN CORPUSCULAR VOLUME 104.4 fl (80.0-96.0); RED BLOOD COUNT 2.48 10^6/uL (4.00-5.40); WHITE BLOOD COUNT 6.6 10^3/uL (4.0-10.0)
[2022-07-07 06:29] LABS: PLATELET COUNT, AUTOMATED 86 10^3/uL (150-450)
[2022-07-07 06:44] LABS: BLOOD UREA NITROGEN 16 MG/DL (9-23); CALCIUM LEVEL 7.6 MG/DL (8.3-10.6); CARBON DIOXIDE LEVEL 31 MMOL/L (20-31); CHLORIDE LEVEL 106 MMOL/L (98-107); CREATININE FOR GFR 0.79 MG/DL (0.55-1.30); GLOMERULAR FILTRATION RATE > 60.0 (>39); GLUCOSE, FASTING 82 MG/DL (74-106); MAGNESIUM LEVEL 1.9 MG/DL (1.8-2.4); POTASSIUM SERUM 3.7 MMOL/L (3.5-5.1); SODIUM LEVEL 141 MMOL/L (136-145)
[2022-07-07] MEDS: POTASSIUM CHLORIDE 10MEQ SR TABLET PO SCH (09:06)
[2022-07-07 11:56] VITALS: BP 103/58
[2022-07-08 05:19] VITALS: BP 120/84; TEMP 98.4; O2SAT 91
[2022-07-08 22:00] VITALS: BP 94/62
[2022-07-08 23:30] VITALS: BP 94/62
[2022-07-09 05:10] VITALS: BP 93/60; TEMP 97.9; O2SAT 94
[2022-07-09 23:40] VITALS: BP 118/66
[2022-07-10 05:00] VITALS: BP 112/54; TEMP 97.7; O2SAT 92
[2022-07-10 08:03] LABS: HEMATOCRIT 27.9 % (36.0-47.0); HEMOGLOBIN 8.9 g/dl (12.0-15.5); MEAN CORPUSCULAR HEMOGLOBIN 33.7 pg (27.0-33.0); MEAN CORPUSCULAR HGB CONC 31.9 g/dl (32.0-36.5); MEAN CORPUSCULAR VOLUME 105.7 fl (80.0-96.0); RED BLOOD COUNT 2.64 10^6/uL (4.00-5.40); WHITE BLOOD COUNT 4.9 10^3/uL (4.0-10.0)
[2022-07-10 08:04] LABS: PLATELET COUNT, AUTOMATED 87 10^3/uL (150-450)
[2022-07-10 08:30] LABS: ALBUMIN 2.3 G/DL (3.2-5.2); ALKALINE PHOSPHATASE 60 U/L (46-116); ALT/SGPT < 9 U/L (7.0-40); AST/SGOT 16 U/L (<34); BILIRUBIN,TOTAL 0.4 MG/DL (0.3-1.2); BLOOD UREA NITROGEN 24 MG/DL (9-23); CALCIUM LEVEL 8.1 MG/DL (8.3-10.6); CARBON DIOXIDE LEVEL 31 MMOL/L (20-31); CHLORIDE LEVEL 104 MMOL/L (98-107); CREATININE FOR GFR 0.76 MG/DL (0.55-1.30); GLOMERULAR FILTRATION RATE > 60.0 (>39); GLUCOSE, FASTING 91 MG/DL (74-106); MAGNESIUM LEVEL 1.8 MG/DL (1.8-2.4); SODIUM LEVEL 140 MMOL/L (136-145); TOTAL PROTEIN 4.9 G/DL (5.7-8.2)
[2022-07-11 06:00] VITALS: BP 106/69; TEMP 98.1
[2022-07-12 05:52] VITALS: BP 118/74; TEMP 98.2
[2022-07-13 05:21] VITALS: BP 116/78; TEMP 98.6; O2SAT 97
[2022-07-13 07:08] LABS: HEMATOCRIT 31.5 % (36.0-47.0); HEMOGLOBIN 9.8 g/dl (12.0-15.5); MEAN CORPUSCULAR HEMOGLOBIN 33.1 pg (27.0-33.0); MEAN CORPUSCULAR HGB CONC 31.1 g/dl (32.0-36.5); MEAN CORPUSCULAR VOLUME 106.4 fl (80.0-96.0); PLATELET COUNT, AUTOMATED 126 10^3/uL (150-450); RED BLOOD COUNT 2.96 10^6/uL (4.00-5.40); WHITE BLOOD COUNT 5.9 10^3/uL (4.0-10.0)
[2022-07-13 07:42] LABS: BLOOD UREA NITROGEN 24 MG/DL (9-23); CALCIUM LEVEL 8.5 MG/DL (8.3-10.6); CARBON DIOXIDE LEVEL 31 MMOL/L (20-31); CHLORIDE LEVEL 102 MMOL/L (98-107); CREATININE FOR GFR 0.82 MG/DL (0.55-1.30); GLOMERULAR FILTRATION RATE > 60.0 (>39); GLUCOSE, FASTING 84 MG/DL (74-106); MAGNESIUM LEVEL 2.1 MG/DL (1.8-2.4); POTASSIUM SERUM 4.2 MMOL/L (3.5-5.1); SODIUM LEVEL 137 MMOL/L (136-145)
[2022-07-14 04:50] VITALS: BP 118/72; TEMP 97.9; O2SAT 95
[2022-07-14 07:00] VITALS: BP 112/70
[2022-07-15 05:10] VITALS: TEMP 98.6; O2SAT 95
[2022-07-16 05:49] VITALS: BP 105/71; TEMP 98.8; O2SAT 96
[2022-07-16 06:11] LABS: HEMOGLOBIN 9.1 g/dl (12.0-15.5); MEAN CORPUSCULAR HEMOGLOBIN 33.2 pg (27.0-33.0); MEAN CORPUSCULAR HGB CONC 31.4 g/dl (32.0-36.5); MEAN CORPUSCULAR VOLUME 105.8 fl (80.0-96.0); PLATELET COUNT, AUTOMATED 116 10^3/uL (150-450); RED BLOOD COUNT 2.74 10^6/uL (4.00-5.40); WHITE BLOOD COUNT 5.9 10^3/uL (4.0-10.0)
[2022-07-16 06:35] LABS: BLOOD UREA NITROGEN 19 MG/DL (9-23); CALCIUM LEVEL 8.5 MG/DL (8.3-10.6); CARBON DIOXIDE LEVEL 30 MMOL/L (20-31); CHLORIDE LEVEL 105 MMOL/L (98-107); CREATININE FOR GFR 0.71 MG/DL (0.55-1.30); GLOMERULAR FILTRATION RATE > 60.0 (>39); GLUCOSE, FASTING 86 MG/DL (74-106); MAGNESIUM LEVEL 1.7 MG/DL (1.8-2.4); POTASSIUM SERUM 4.3 MMOL/L (3.5-5.1); SODIUM LEVEL 140 MMOL/L (136-145)
[2022-07-16 08:59] VITALS: BP 118/79
[2022-07-16 12:27] VITALS: BP 114/80
[2022-07-16 15:57] VITALS: BP 125/79
[2022-07-16 16:58] VITALS: BP 115/79
[2022-07-17 06:00] VITALS: BP 100/66; TEMP 98.1; O2SAT 95
[2022-07-17 08:00] VITALS: BP 123/71
[2022-07-17 12:34] VITALS: BP 117/77
[2022-07-17 15:40] VITALS: BP 117/77
[2022-07-17 17:14] VITALS: BP 119/73
[2022-07-17] MEDS: METOPROLOL TART 25 MG TABLET PO SCH (20:02)
[2022-07-18 06:00] VITALS: BP 92/65; TEMP 98.4; O2SAT 95
[2022-07-18] MEDS ORDERED: MIDODRINE 5 MG TAB PO SCH (08:00)
[2022-07-18 14:00] VITALS: BP 149/71; TEMP 97.7; O2SAT 97
[2022-07-19 05:55] VITALS: BP 108/68; TEMP 97.9
[2022-07-20 06:00] VITALS: BP 107/64; TEMP 98.8; O2SAT 96
[2022-07-21 06:00] VITALS: BP 125/69; TEMP 98.1; O2SAT 94
[2022-07-22 06:12] VITALS: BP 102/62; TEMP 97.9; O2SAT 95
[2022-07-23 06:10] VITALS: BP 106/70; TEMP 97.9; O2SAT 92
[2022-07-23 06:22] LABS: HEMATOCRIT 33.1 % (36.0-47.0); HEMOGLOBIN 10.5 g/dl (12.0-15.5); MEAN CORPUSCULAR HEMOGLOBIN 33.2 pg (27.0-33.0); MEAN CORPUSCULAR HGB CONC 31.7 g/dl (32.0-36.5); MEAN CORPUSCULAR VOLUME 104.7 fl (80.0-96.0); PLATELET COUNT, AUTOMATED 101 10^3/uL (150-450); RED BLOOD COUNT 3.16 10^6/uL (4.00-5.40); WHITE BLOOD COUNT 5.7 10^3/uL (4.0-10.0)
[2022-07-23 06:51] LABS: BLOOD UREA NITROGEN 20 MG/DL (9-23); CALCIUM LEVEL 8.5 MG/DL (8.3-10.6); CARBON DIOXIDE LEVEL 30 MMOL/L (20-31); CHLORIDE LEVEL 105 MMOL/L (98-107); CREATININE FOR GFR 0.85 MG/DL (0.55-1.30); GLOMERULAR FILTRATION RATE > 60.0 (>39); GLUCOSE, FASTING 89 MG/DL (74-106); POTASSIUM SERUM 4.1 MMOL/L (3.5-5.1); SODIUM LEVEL 139 MMOL/L (136-145)
[2022-07-24 04:40] VITALS: BP 116/69; TEMP 98.2; O2SAT 91
[2022-07-25 06:00] VITALS: BP 105/56; TEMP 97.7; O2SAT 96
[2022-07-25 12:11] VITALS: BP 101/68
[2022-07-25 16:55] VITALS: BP 108/69
[2022-07-26 06:00] VITALS: BP 104/67; TEMP 98.6; O2SAT 95
[2022-07-26 09:00] VITALS: BP 105/79
[2022-07-26 12:43] VITALS: BP 116/71
[2022-07-26 15:07] VITALS: BP 106/68
[2022-07-27 06:00] VITALS: BP 104/61; TEMP 98.6; O2SAT 93
[2022-07-28 06:00] VITALS: BP 106/67; TEMP 97.9; O2SAT 95
[2022-07-29 06:00] VITALS: BP 103/65; TEMP 97.9; O2SAT 92
[2022-07-29 12:43] VITALS: BP 109/55
[2022-07-29 16:45] VITALS: BP 111/62
[2022-07-30 05:56] VITALS: BP 110/61; TEMP 97.7; O2SAT 93
[2022-07-30 08:20] VITALS: BP 110/70
[2022-07-30 09:39] LABS: BASO # 0.1 10^3/uL (0.0-0.2); BASO % 0.8 % (0.0-1.0); EOS # 0.1 10^3/uL (0.0-0.5); HEMATOCRIT 37.2 % (36.0-47.0); HEMOGLOBIN 11.8 g/dl (12.0-15.5); LYMPH # 2.5 10^3/uL (1.5-5.0); LYMPH % 34.3 % (24.0-44.0); MEAN CORPUSCULAR HEMOGLOBIN 32.5 pg (27.0-33.0); MEAN CORPUSCULAR HGB CONC 31.7 g/dl (32.0-36.5); MEAN CORPUSCULAR VOLUME 102.5 fl (80.0-96.0); MONO # 0.5 10^3/uL (0.0-0.8); MONO % 7.2 % (2.0-8.0); NEUTROPHILS # 4.1 10^3/uL (1.5-8.5); NEUTROPHILS % 56.4 % (36.0-66.0); PLATELET COUNT, AUTOMATED 114 10^3/uL (150-450); RED BLOOD COUNT 3.63 10^6/uL (4.00-5.40); WHITE BLOOD COUNT 7.2 10^3/uL (4.0-10.0)
[2022-07-30 10:06] LABS: ALKALINE PHOSPHATASE 67 U/L (46-116); ALT/SGPT 24 U/L (7.0-40); AST/SGOT 19 U/L (<34); BILIRUBIN,TOTAL 0.5 MG/DL (0.3-1.2); BLOOD UREA NITROGEN 20 MG/DL (9-23); CALCIUM LEVEL 8.3 MG/DL (8.3-10.6); CARBON DIOXIDE LEVEL 32 MMOL/L (20-31); CHLORIDE LEVEL 104 MMOL/L (98-107); CREATININE FOR GFR 0.78 MG/DL (0.55-1.30); DIGOXIN LEVEL 1.7 NG/ML (0.8-2.0); GLOMERULAR FILTRATION RATE > 60.0 (>39); GLUCOSE, FASTING 68 MG/DL (74-106); MAGNESIUM LEVEL 1.7 MG/DL (1.8-2.4); PHOSPHORUS LEVEL 3.5 MG/DL (2.4-5.1); POTASSIUM SERUM 4.1 MMOL/L (3.5-5.1); SODIUM LEVEL 140 MMOL/L (136-145); TOTAL PROTEIN 5.7 G/DL (5.7-8.2)
[2022-07-30 12:43] VITALS: BP 117/73
[2022-07-30 16:16] VITALS: BP 116/81
[2022-07-31 06:00] VITALS: BP 108/65; TEMP 97.9; O2SAT 95
[2022-07-31] MEDS: DIGOXIN 0.125 MG TAB PO SCH (08:36)
[2022-07-31] MEDS ORDERED: DIGOXIN 0.25 MG TAB PO SCH (09:00)
[2022-07-31 12:19] VITALS: BP 104/67
[2022-07-31 16:15] VITALS: BP 107/68
[2022-07-31] MEDS: CYANOCOBALAMIN 500 MCG TAB PO SCH (18:27)
[2022-07-31] MEDS: THIAMINE 100 MG TAB PO SCH (18:27)
[2022-08-01 05:26] VITALS: BP 121/58; TEMP 98.8; O2SAT 96
[2022-08-01 06:39] LABS: IRON (FE) 34 UG/DL (50-170); PERCENT SATURATION 10.5 % (13.2-45.0); TOTAL IRON BINDING CAPACITY 323 UG/DL (250-425)
[2022-08-01 06:41] LABS: FERRITIN 29.5 NG/ML (7.3-270.7)
[2022-08-01 06:42] LABS: FOLATE > 24.00 NG/ML (>5.4); VITAMIN B12 LEVEL 207 PG/ML (211-911)
[2022-08-01 08:22] VITALS: BP 100/66
[2022-08-01] MEDS: FERROUS GLUCONATE 324 MG TAB PO SCH (08:23)
[2022-08-01] MEDS: SENOKOT S TAB PO SCH (08:23)
[2022-08-01 11:45] VITALS: BP 106/67
[2022-08-01] MEDS: CYANOCOBALAMIN 1,000MCG/ML 1ML VIAL IM SCH (11:48)
[2022-08-01 17:20] VITALS: BP 111/75
[2022-08-02 05:30] VITALS: BP 112/76; TEMP 98.1; O2SAT 95
[2022-08-02 14:00] VITALS: BP 109/65; TEMP 97.9; O2SAT 95
[2022-08-03 05:30] VITALS: BP 110/67; TEMP 97.5; O2SAT 97
[2022-08-03 12:34] VITALS: BP 102/64
[2022-08-03 17:25] VITALS: BP 121/77
[2022-08-04 06:00] VITALS: BP 104/62; TEMP 97.5; O2SAT 95
[2022-08-04] MEDS: CYANOCOBALAMIN 500 MCG TAB PO SCH (09:00)
[2022-08-04 12:14] VITALS: BP 97/66
[2022-08-04 16:00] VITALS: BP 111/69
[2022-08-05 05:33] VITALS: BP 116/68; TEMP 97.9; O2SAT 94
[2022-08-05 07:46] VITALS: BP 110/74
[2022-08-05 12:18] VITALS: BP 109/66
[2022-08-05 16:11] VITALS: BP 102/85
[2022-08-06 05:00] VITALS: BP 132/71; TEMP 97.7; O2SAT 95
[2022-08-07 05:20] VITALS: BP 116/66; TEMP 97.7; O2SAT 96
[2022-08-08 05:30] VITALS: BP 97/60; TEMP 98.1; O2SAT 95
[2022-08-08 12:20] VITALS: BP 125/85
[2022-08-09 06:00] VITALS: BP 108/68; TEMP 98.4; O2SAT 98
[2022-08-09 20:22] VITALS: BP 117/74; TEMP 97; O2SAT 96
[2022-08-10 05:36] VITALS: BP 109/79; TEMP 97.7; O2SAT 98
[2022-08-10 12:16] VITALS: BP 125/72
[2022-08-10 16:30] VITALS: BP 114/70
[2022-08-11 06:00] VITALS: BP 118/68; TEMP 97.9; O2SAT 96
[2022-08-11 12:31] VITALS: BP 102/79
[2022-08-12 06:00] VITALS: BP 103/67; TEMP 97.5; O2SAT 97
[2022-08-13 06:00] VITALS: BP 111/67; TEMP 97.5; O2SAT 97
[2022-08-14 05:54] VITALS: BP 103/69; TEMP 97.5; O2SAT 96
[2022-08-14 17:36] VITALS: BP 112/82
[2022-08-15 06:00] VITALS: BP 109/65; TEMP 97.5; O2SAT 97
[2022-08-16 06:00] VITALS: BP 114/75; TEMP 97.5; O2SAT 97
[2022-08-16 12:49] VITALS: BP 117/68
[2022-08-17 06:00] VITALS: BP 94/55; TEMP 97.5; O2SAT 90
[2022-08-18 04:30] VITALS: BP 123/73; TEMP 98.1; O2SAT 95
[2022-08-19 06:00] VITALS: BP 110/72; TEMP 97.3; O2SAT 97
[2022-08-20 06:00] VITALS: BP 116/71; TEMP 97.9; O2SAT 97
[2022-08-21 06:00] VITALS: BP 112/72; TEMP 97.5; O2SAT 97
[2022-08-22 06:00] VITALS: BP 115/72; TEMP 98.8; O2SAT 96
[2022-08-23 05:54] VITALS: BP 102/56; TEMP 99; O2SAT 97
[2022-08-23 10:00] VITALS: BP 126/60; TEMP 97.9; O2SAT 97
[2022-08-23 12:10] VITALS: BP 122/79
[2022-08-24 05:42] VITALS: BP 106/70; TEMP 96.8; O2SAT 95
[2022-08-25 05:10] VITALS: BP 115/69; TEMP 97.9; O2SAT 94
[2022-08-25 16:03] VITALS: BP 102/61
[2022-08-26 05:36] VITALS: BP 100/56; TEMP 98.8; O2SAT 96
[2022-08-26 12:01] VITALS: BP 115/68
[2022-08-26 16:28] VITALS: BP 114/69
[2022-08-27 06:17] VITALS: BP 115/79; TEMP 98.6; O2SAT 99
[2022-08-27 12:24] VITALS: BP 115/59
[2022-08-27 16:56] VITALS: BP 122/83
[2022-08-28 06:19] VITALS: BP 111/61; TEMP 98.4; O2SAT 97
[2022-08-28 11:19] VITALS: BP 104/69
[2022-08-28 17:05] VITALS: BP 108/66
[2022-08-29 06:01] VITALS: BP 127/60; TEMP 98.1; O2SAT 100
[2022-08-30 06:00] VITALS: BP 115/64; TEMP 98.2; O2SAT 98
[2022-08-30 15:23] VITALS: BP 109/73
[2022-08-31 06:00] VITALS: BP 112/74; TEMP 97.9; O2SAT 97
[2022-08-31 12:16] VITALS: BP 110/73
[2022-09-01 04:30] VITALS: BP 126/83; TEMP 97.7; O2SAT 96
[2022-09-02 06:07] LABS: BASO % 0.7 % (0.0-1.0); EOS # 0.1 10^3/uL (0.0-0.5); EOS % 1.9 % (0.0-3.0); HEMATOCRIT 37.8 % (36.0-47.0); HEMOGLOBIN 12.3 g/dl (12.0-15.5); LYMPH # 3.1 10^3/uL (1.5-5.0); LYMPH % 58.2 % (24.0-44.0); MEAN CORPUSCULAR HEMOGLOBIN 31.9 pg (27.0-33.0); MEAN CORPUSCULAR HGB CONC 32.5 g/dl (32.0-36.5); MEAN CORPUSCULAR VOLUME 97.9 fl (80.0-96.0); MONO # 0.4 10^3/uL (0.0-0.8); MONO % 7.3 % (2.0-8.0); NEUTROPHILS # 1.7 10^3/uL (1.5-8.5); NEUTROPHILS % 31.7 % (36.0-66.0); RED BLOOD COUNT 3.86 10^6/uL (4.00-5.40); WHITE BLOOD COUNT 5.3 10^3/uL (4.0-10.0)
[2022-09-02 06:08] VITALS: BP 100/58; TEMP 97.7; O2SAT 96
[2022-09-02 06:08] LABS: PLATELET COUNT, AUTOMATED 86 10^3/uL (150-450)
[2022-09-02 06:20] LABS: INR 0.99; PROTHROMBIN TIME 13.3 SECONDS (12.5-14.5)
[2022-09-02 06:21] LABS: PARTIAL THROMBOPLASTIN TIME 28.8 SECONDS (24.8-34.2)
[2022-09-02 06:24] LABS: ALBUMIN 3.2 G/DL (3.2-5.2); ALKALINE PHOSPHATASE 59 U/L (46-116); ALT/SGPT 25 U/L (7.0-40); AST/SGOT 14 U/L (<34); BILIRUBIN,TOTAL 0.6 MG/DL (0.3-1.2); BLOOD UREA NITROGEN 28 MG/DL (9-23); CALCIUM LEVEL 9.5 MG/DL (8.3-10.6); CARBON DIOXIDE LEVEL 30 MMOL/L (20-31); CHLORIDE LEVEL 104 MMOL/L (98-107); CREATININE FOR GFR 0.87 MG/DL (0.55-1.30); DIGOXIN LEVEL 0.7 NG/ML (0.8-2.0); GLOMERULAR FILTRATION RATE > 60.0 (>39); GLUCOSE, FASTING 85 MG/DL (74-106); IRON (FE) 48 UG/DL (50-170); MAGNESIUM LEVEL 1.8 MG/DL (1.8-2.4); PERCENT SATURATION 15.3 % (13.2-45.0); SODIUM LEVEL 139 MMOL/L (136-145); TOTAL IRON BINDING CAPACITY 314 UG/DL (250-425); TOTAL PROTEIN 5.6 G/DL (5.7-8.2)
[2022-09-02 06:25] LABS: FERRITIN 14.9 NG/ML (7.3-270.7)
[2022-09-02 06:26] LABS: FOLATE > 24.00 NG/ML (>5.4); VITAMIN B12 LEVEL 632 PG/ML (211-911)
[2022-09-03 05:10] VITALS: BP 117/63; TEMP 97.7; O2SAT 98
[2022-09-03] MEDS: CYANOCOBALAMIN 250 MCG TABLET PO SCH (08:44)
[2022-09-03] MEDS: MAGNESIUM OXIDE 400MG TAB (MAG-OX) PO SCH (08:45)
[2022-09-04 05:00] VITALS: BP 123/73; TEMP 97.7; O2SAT 97
[2022-09-04 16:59] VITALS: BP 120/72
[2022-09-05 05:45] VITALS: BP 118/70; TEMP 99.1; O2SAT 91
[2022-09-06 06:00] VITALS: BP 120/80; TEMP 98.1; O2SAT 98
[2022-09-06 20:18] VITALS: BP 149/93
[2022-09-07 05:16] VITALS: BP 112/68; TEMP 98.6; O2SAT 96
[2022-09-07 15:27] VITALS: BP 98/62
[2022-09-08 05:12] VITALS: BP 116/74; TEMP 98.4; O2SAT 97
[2022-09-08 06:12] LABS: CALCIUM LEVEL 9.1 MG/DL (8.3-10.6); CREATININE FOR GFR 0.99 MG/DL (0.55-1.30); GLOMERULAR FILTRATION RATE 58.9 (>39); MAGNESIUM LEVEL 1.8 MG/DL (1.8-2.4); POTASSIUM SERUM 4.1 MMOL/L (3.5-5.1)
[2022-09-09 05:16] VITALS: BP 119/77; TEMP 98.1; O2SAT 97
[2022-09-10 06:00] VITALS: BP 117/77; TEMP 97.9; O2SAT 91
[2022-09-10 11:15] VITALS: BP 108/63
[2022-09-11 05:13] VITALS: BP 141/85; TEMP 97.9; O2SAT 99
[2022-09-11 16:10] VITALS: BP 134/68
[2022-09-12 06:00] VITALS: BP 107/72; TEMP 97; O2SAT 97
[2022-09-13 05:40] VITALS: BP 118/74; TEMP 97.7; O2SAT 98
[2022-09-13 11:24] VITALS: BP 117/74
[2022-09-14 04:30] VITALS: BP 118/63; TEMP 97.7; O2SAT 97
[2022-09-15 05:13] VITALS: BP 131/74; TEMP 98.6; O2SAT 98
[2022-09-17 06:00] VITALS: BP 100/64; TEMP 97.5; O2SAT 97
[2022-09-18 06:00] VITALS: BP 108/66; TEMP 97.9; O2SAT 99
[2022-09-18 09:24] VITALS: BP 105/71
[2022-09-18 18:19] VITALS: BP 115/70
[2022-09-19 06:00] VITALS: BP 111/67; TEMP 97.7; O2SAT 98
[2022-09-19 11:36] VITALS: BP 112/77
[2022-09-19 16:00] VITALS: BP 121/68
[2022-09-20 05:44] VITALS: BP 107/62; TEMP 97.9; O2SAT 95
[2022-09-20 20:15] VITALS: BP 117/72
[2022-09-21 05:20] VITALS: BP 118/73; TEMP 97.5; O2SAT 96
[2022-09-21 17:05] VITALS: BP 103/67
[2022-09-22 05:10] VITALS: BP 121/77; TEMP 97.5; O2SAT 98
[2022-09-22 16:55] VITALS: BP 118/75
[2022-09-23 05:00] VITALS: BP 121/75; TEMP 97.7; O2SAT 96
[2022-09-24 05:01] VITALS: BP 95/47; TEMP 97; O2SAT 97
[2022-09-24 05:03] VITALS: BP 102/52
[2022-09-24 13:16] VITALS: BP 115/62
[2022-09-24 17:00] VITALS: BP 119/85
[2022-09-25 05:36] VITALS: BP 113/69; TEMP 97.7; O2SAT 97
[2022-09-25 12:03] VITALS: BP 137/83
[2022-09-26 05:53] VITALS: BP 107/73; TEMP 99; O2SAT 95
[2022-09-26 12:13] VITALS: BP 108/67
[2022-09-26 17:19] VITALS: BP 105/66
[2022-09-28 06:00] VITALS: BP 105/61; TEMP 98.6; O2SAT 98
[2022-09-29 05:21] VITALS: BP 105/66; TEMP 97.9; O2SAT 99
[2022-09-30 06:00] VITALS: BP 122/82; TEMP 97.7; O2SAT 97
[2022-10-01 06:00] VITALS: BP 114/80; TEMP 97.3; O2SAT 99
[2022-10-01 11:20] VITALS: BP 96/64
[2022-10-01 16:57] VITALS: BP 123/72
[2022-10-02 06:19] VITALS: BP 109/71; TEMP 97.9; O2SAT 98
[2022-10-02 12:11] VITALS: BP 110/75
[2022-10-03 05:38] VITALS: BP 112/55; TEMP 97.9; O2SAT 96
[2022-10-03 12:37] VITALS: BP 115/79
[2022-10-03 17:16] VITALS: BP 152/80
[2022-10-04 05:33] VITALS: BP 125/79; TEMP 97.5; O2SAT 97
[2022-10-04 11:28] VITALS: BP 133/60
[2022-10-04 16:08] VITALS: BP 120/73
[2022-10-05 06:00] VITALS: BP_SYST 112; BP_SYST 122; BP_DIAS 64; BP_DIAS 71; TEMP 97.7; O2SAT 98
[2022-10-05 11:24] VITALS: BP 110/73
[2022-10-05 17:05] VITALS: BP 117/73
[2022-10-06 05:42] VITALS: BP 125/66; TEMP 97.7; O2SAT 97
[2022-10-06 08:52] VITALS: BP 104/70
[2022-10-07 04:40] VITALS: BP 117/61; TEMP 98.1; O2SAT 96
[2022-10-07 11:33] VITALS: BP 118/63
[2022-10-08 05:39] VITALS: BP 122/71; TEMP 97.2; O2SAT 96
[2022-10-08 17:02] VITALS: BP 130/84
[2022-10-09 05:17] VITALS: BP 121/84; TEMP 97.7; O2SAT 96
[2022-10-09 12:10] VITALS: BP 127/84
[2022-10-10 04:40] VITALS: BP 120/70; TEMP 97.9; O2SAT 96
[2022-10-11 06:00] VITALS: BP 115/64; TEMP 97.7; O2SAT 95
[2022-10-11 18:00] VITALS: BP 134/70; TEMP 97.7; O2SAT 96
[2022-10-12 06:00] VITALS: BP 125/65; TEMP 97.7; O2SAT 96
[2022-10-13 05:02] VITALS: BP 111/66; TEMP 97.5; O2SAT 96
[2022-10-14 05:13] VITALS: BP 114/71; TEMP 99; O2SAT 95
[2022-10-14 12:22] VITALS: BP 136/81
[2022-10-14 16:51] VITALS: BP 104/70
[2022-10-15 05:43] VITALS: BP 119/74; TEMP 98.1; O2SAT 95; O2SAT 96
[2022-10-15 12:20] VITALS: BP 118/68
[2022-10-15 16:59] VITALS: BP 112/62
[2022-10-16 06:00] VITALS: BP 118/69; TEMP 98.6; O2SAT 93
[2022-10-16 11:41] VITALS: BP 100/60
[2022-10-16 17:28] VITALS: BP 102/60
[2022-10-17 05:48] VITALS: BP 105/93; TEMP 97.5; O2SAT 93
[2022-10-17 12:55] VITALS: BP 112/68
[2022-10-18 06:00] VITALS: BP 113/59; TEMP 98.1; O2SAT 97
[2022-10-19 06:00] VITALS: BP 115/57; TEMP 98.4; O2SAT 97
[2022-10-20 06:00] VITALS: BP 106/60; TEMP 97; O2SAT 100
[2022-10-20 21:08] VITALS: BP 136/74
[2022-10-21 04:10] VITALS: BP 116/59; TEMP 97.7; O2SAT 99
[2022-10-21 16:17] VITALS: BP 119/80
[2022-10-22 06:20] VITALS: BP 112/57; TEMP 97; O2SAT 97
[2022-10-22 22:00] VITALS: BP 120/63
[2022-10-23 05:47] VITALS: BP 118/55; TEMP 97.7; O2SAT 97
[2022-10-23 20:40] VITALS: BP 113/54
[2022-10-24 06:38] VITALS: BP 127/74; TEMP 97; O2SAT 98
[2022-10-25 06:00] VITALS: BP 110/65; TEMP 97.9; O2SAT 96
[2022-10-25 12:37] VITALS: BP 132/88
[2022-10-25 16:38] VITALS: BP 124/76
[2022-10-26 04:30] VITALS: BP 137/70; TEMP 97.9; O2SAT 96
[2022-10-26 16:55] VITALS: BP 112/85
[2022-10-27 06:00] VITALS: BP 98/67; TEMP 98.2; O2SAT 98
[2022-10-27 13:22] VITALS: BP 108/67
[2022-10-27 15:26] VITALS: BP 108/65
[2022-10-28 06:09] VITALS: BP 97/64; TEMP 97.9; O2SAT 98
[2022-10-28 12:02] VITALS: BP 131/84
[2022-10-28 15:29] VITALS: BP 128/76
[2022-10-29 06:00] VITALS: BP 97/53; TEMP 97.5; O2SAT 96
[2022-10-29 13:11] VITALS: BP 136/72
[2022-10-30 06:00] VITALS: BP 142/75; TEMP 98.2; O2SAT 98
[2022-10-30 12:25] VITALS: BP 142/71
[2022-10-31 06:00] VITALS: BP 107/54; TEMP 98.1; O2SAT 96
[2022-10-31 12:45] VITALS: BP 137/61
[2022-10-31 17:13] VITALS: BP 119/60
[2022-11-01 05:30] VITALS: BP 105/63; TEMP 98.8; O2SAT 96
[2022-11-01 12:52] VITALS: BP 127/63
[2022-11-01 16:54] VITALS: BP 139/84
[2022-11-02 06:00] VITALS: BP 139/78; TEMP 97.7; O2SAT 96
[2022-11-02 08:29] VITALS: BP 127/62
[2022-11-02 11:40] VITALS: BP 132/89
[2022-11-02 17:06] VITALS: BP 122/88
[2022-11-03 05:42] VITALS: BP 135/74; TEMP 97.9; O2SAT 97
[2022-11-03 12:19] VITALS: BP 143/85
[2022-11-03 16:28] VITALS: BP 139/82
[2022-11-04 06:19] VITALS: BP 133/76; TEMP 97.7; O2SAT 97
[2022-11-04 17:10] VITALS: BP 112/65
[2022-11-05 06:00] VITALS: BP 104/71; TEMP 98.1; O2SAT 98
[2022-11-05] MEDS: MIDODRINE 5 MG TAB PO SCH (16:43)
[2022-11-06 05:23] VITALS: BP 115/69; TEMP 97.7; O2SAT 96
[2022-11-06 05:51] LABS: BASO % 0.6 % (0.0-1.0); EOS # 0.1 10^3/uL (0.0-0.5); EOS % 1.7 % (0.0-3.0); HEMOGLOBIN 12.5 g/dl (12.0-15.5); LYMPH # 2.8 10^3/uL (1.5-5.0); LYMPH % 43.7 % (24.0-44.0); MEAN CORPUSCULAR HGB CONC 32.9 g/dl (32.0-36.5); MEAN CORPUSCULAR VOLUME 97.2 fl (80.0-96.0); MONO # 0.5 10^3/uL (0.0-0.8); MONO % 8.4 % (2.0-8.0); NEUTROPHILS # 2.9 10^3/uL (1.5-8.5); NEUTROPHILS % 45.4 % (36.0-66.0); RED BLOOD COUNT 3.91 10^6/uL (4.00-5.40); WHITE BLOOD COUNT 6.4 10^3/uL (4.0-10.0)
[2022-11-06 05:56] LABS: PLATELET COUNT, AUTOMATED 98 10^3/uL (150-450)
[2022-11-06 06:12] LABS: IRON (FE) 86 UG/DL (50-170); PERCENT SATURATION 26.1 % (13.2-45.0); TOTAL IRON BINDING CAPACITY 330 UG/DL (250-425)
[2022-11-06 06:15] LABS: BLOOD UREA NITROGEN 25 MG/DL (9-23); CALCIUM LEVEL 8.9 MG/DL (8.3-10.6); CARBON DIOXIDE LEVEL 34 MMOL/L (20-31); CHLORIDE LEVEL 104 MMOL/L (98-107); CHOLESTEROL LEVEL 194 MG/DL (<200); CHOLESTEROL RISK RATIO 2.79 (<5); CREATININE FOR GFR 0.99 MG/DL (0.55-1.30); FERRITIN 23.8 NG/ML (7.3-270.7); FOLATE > 24.00 NG/ML (>5.4); GLOMERULAR FILTRATION RATE 58.9 (>39); GLUCOSE, FASTING 92 MG/DL (74-106); HDL CHOLESTEROL 69.5 MG/DL (>40); LDL CHOLESTEROL 102.7 MG/DL (<100); MAGNESIUM LEVEL 1.8 MG/DL (1.8-2.4); NON-HDL-C 124.5 MG/DL; POTASSIUM SERUM 4.2 MMOL/L (3.5-5.1); SODIUM LEVEL 141 MMOL/L (136-145); TRIGLYCERIDES LEVEL 109 MG/DL (<150); VITAMIN B12 LEVEL 655 PG/ML (211-911)
[2022-11-06] MEDS: MAGNESIUM OXIDE 400MG TAB (MAG-OX) PO SCH (09:59)
[2022-11-07 06:07] VITALS: BP 108/56; TEMP 98.2; O2SAT 97
[2022-11-08 05:10] VITALS: BP 127/85; TEMP 98.1; O2SAT 97
[2022-11-08 17:23] VITALS: BP 116/66
[2022-11-09 05:02] VITALS: BP 103/70; TEMP 97.9; O2SAT 95
[2022-11-10 05:35] VITALS: BP 115/73; TEMP 98.1; O2SAT 95
[2022-11-10 16:03] VITALS: BP 110/72
[2022-11-10 19:42] VITALS: BP 98/50
[2022-11-11 06:00] VITALS: BP 114/54; TEMP 97.9; O2SAT 98
[2022-11-11 20:14] VITALS: BP 96/42
[2022-11-12 06:00] VITALS: BP 95/57; TEMP 97.3; O2SAT 96
[2022-11-12 08:44] VITALS: BP 131/72
[2022-11-12 17:18] VITALS: BP 128/62
[2022-11-13 06:00] VITALS: BP 109/56; TEMP 97.5; O2SAT 96
[2022-11-14 06:00] VITALS: BP 100/60; TEMP 98.2; O2SAT 95
[2022-11-14 06:08] VITALS: BP 102/60
[2022-11-14 15:21] VITALS: BP 107/70
[2022-11-15 05:15] VITALS: BP 104/71; TEMP 98.2; O2SAT 94
[2022-11-15 15:19] VITALS: BP 126/70
[2022-11-16 05:46] VITALS: BP 104/64; TEMP 97.9; O2SAT 94
[2022-11-16 15:32] VITALS: BP 124/77
[2022-11-17 06:00] VITALS: BP 125/57; TEMP 97.9; O2SAT 96
[2022-11-18 06:00] VITALS: BP 99/63; TEMP 97.9; O2SAT 94
[2022-11-19 06:18] VITALS: BP 98/55; TEMP 98.1; O2SAT 95
[2022-11-20 06:00] VITALS: BP 140/62; TEMP 97.5; O2SAT 96
[2022-11-20 15:25] VITALS: BP 100/66
[2022-11-21 06:00] VITALS: BP 112/65; TEMP 97.5; O2SAT 92
[2022-11-21 16:25] VITALS: BP 138/76
[2022-11-22 06:00] VITALS: BP 129/72; TEMP 98.1; O2SAT 93
[2022-11-23 05:21] VITALS: BP 113/68; TEMP 97.9; O2SAT 92
[2022-11-24 05:30] VITALS: BP 114/68; TEMP 98.8; O2SAT 94
[2022-11-25 05:00] VITALS: BP 105/66; TEMP 98.1; O2SAT 94
[2022-11-26 06:00] VITALS: BP 123/66; TEMP 98.2; O2SAT 98
[2022-11-26 16:13] VITALS: BP 138/88
[2022-11-27 06:00] VITALS: BP 105/64; TEMP 97.5; O2SAT 95
[2022-11-27 16:59] VITALS: BP 107/73
[2022-11-28 05:24] VITALS: BP 104/60; TEMP 97.9; O2SAT 95
[2022-11-28 16:38] VITALS: BP 109/58
[2022-11-29 06:00] VITALS: BP 105/55; TEMP 97.5; O2SAT 98
[2022-11-30 05:34] VITALS: BP 118/54; TEMP 97.8; O2SAT 97
[2022-12-01 04:50] VITALS: BP 90/55; TEMP 97.7; O2SAT 96
[2022-12-02 06:00] VITALS: BP 103/73; TEMP 98.2; O2SAT 91
[2022-12-02 16:49] VITALS: BP 132/74
[2022-12-03 05:28] VITALS: BP 114/57; TEMP 97.7; O2SAT 99
[2022-12-03 15:29] VITALS: BP 102/71
[2022-12-04 05:58] VITALS: BP 106/65; TEMP 97.5; O2SAT 94
[2022-12-04 16:08] VITALS: BP 112/70
[2022-12-05 06:50] VITALS: BP 108/65; TEMP 97.5; O2SAT 95
[2022-12-05 15:10] VITALS: BP 116/75
[2022-12-06 04:26] VITALS: BP 105/58; TEMP 98.8; O2SAT 96
[2022-12-06 15:22] VITALS: BP 121/74
[2022-12-07 05:00] VITALS: BP 104/64; TEMP 97.7; O2SAT 96
[2022-12-07 15:12] VITALS: BP 113/69
[2022-12-08 05:17] VITALS: BP 102/59; TEMP 98.6; O2SAT 100
[2022-12-08 20:49] VITALS: BP 100/60
[2022-12-09 04:20] VITALS: BP 99/60; TEMP 97.7; O2SAT 96
[2022-12-10 06:00] VITALS: BP 101/58; TEMP 97.9; O2SAT 97
[2022-12-11 06:00] VITALS: BP 102/62; TEMP 97.7; O2SAT 97
[2022-12-12 05:00] VITALS: BP 112/73; TEMP 97.5; O2SAT 98
[2022-12-13 05:10] VITALS: BP 107/64; TEMP 97.5; O2SAT 98
[2022-12-14 05:22] VITALS: BP 112/74; TEMP 97.7; O2SAT 96
[2022-12-15 06:00] VITALS: BP 105/62; TEMP 97.7; O2SAT 94
[2022-12-16 06:00] VITALS: BP 119/63; TEMP 97.7; O2SAT 96
[2022-12-16 17:27] VITALS: BP 120/88
[2022-12-17 04:57] VITALS: BP 109/58; TEMP 97.9; O2SAT 98
[2022-12-17 17:24] VITALS: BP 121/80
[2022-12-18 05:57] VITALS: BP 111/64; TEMP 97.9; O2SAT 97
[2022-12-19 05:55] VITALS: BP 94/70; TEMP 97.9; O2SAT 94
[2022-12-19 16:44] VITALS: BP 126/73
[2022-12-20 06:22] VITALS: BP 112/66; TEMP 97.7; O2SAT 94
[2022-12-20 17:23] VITALS: BP 130/89
[2022-12-21 04:25] VITALS: BP 111/61; TEMP 98.1; O2SAT 96
[2022-12-21 16:30] VITALS: BP 132/76
[2022-12-22 05:28] VITALS: BP 111/62; TEMP 97.5; O2SAT 98
[2022-12-22 09:00] VITALS: BP 116/70
[2022-12-22 16:24] VITALS: BP 127/83
[2022-12-23 05:32] VITALS: BP 120/59; TEMP 97.1; O2SAT 96
[2022-12-23 15:35] VITALS: BP 105/68
[2022-12-24 06:13] VITALS: BP 112/67; TEMP 97.5; O2SAT 98
[2022-12-25 05:00] VITALS: BP 121/66; TEMP 97.5; O2SAT 97
[2022-12-25 15:20] VITALS: BP 121/69
[2022-12-26 05:45] VITALS: BP 113/52; TEMP 97.1; O2SAT 95
[2022-12-26 15:53] VITALS: BP 117/80; O2SAT 78
[2022-12-27 05:18] VITALS: BP 116/67; TEMP 97.7; O2SAT 97
[2022-12-28 06:00] VITALS: BP 101/56; TEMP 97.7; O2SAT 96
[2022-12-28 19:30] VITALS: BP 125/93
[2022-12-29 05:00] VITALS: BP 115/64; TEMP 97.7; O2SAT 96
[2022-12-30 06:00] VITALS: BP 105/67; TEMP 97.9; O2SAT 100
[2022-12-30 16:37] VITALS: BP 110/75
[2022-12-30 19:50] VITALS: BP 94/55
[2022-12-31 05:40] VITALS: BP 109/61; TEMP 97.9; O2SAT 97
[2023-01-01 05:17] VITALS: BP 119/62; TEMP 97.7; O2SAT 98
[2023-01-01 09:00] VITALS: BP 113/67
[2023-01-02 05:22] VITALS: BP 105/63; TEMP 97.9; O2SAT 97
[2023-01-02 16:14] VITALS: BP 116/68
[2023-01-03 06:00] VITALS: BP 108/66; TEMP 97.7; O2SAT 96
[2023-01-04 06:00] VITALS: BP 120/76; TEMP 97.7; O2SAT 98
[2023-01-05 05:03] VITALS: BP 110/58; TEMP 97.7; O2SAT 98
[2023-01-06 05:43] VITALS: BP 115/63; TEMP 97.5; O2SAT 95
[2023-01-06] MEDS: SIMVASTATIN 10 MG TAB PO SCH (21:18)
[2023-01-07 04:50] VITALS: BP 118/67; TEMP 97.5; O2SAT 97
[2023-01-07 06:10] LABS: HEMOGLOBIN 12.4 g/dl (12.0-15.5); MEAN CORPUSCULAR HEMOGLOBIN 31.6 pg (27.0-33.0); MEAN CORPUSCULAR HGB CONC 32.6 g/dl (32.0-36.5); MEAN CORPUSCULAR VOLUME 96.7 fl (80.0-96.0); RED BLOOD COUNT 3.93 10^6/uL (4.00-5.40); WHITE BLOOD COUNT 5.4 10^3/uL (4.0-10.0)
[2023-01-07 06:12] LABS: PLATELET COUNT, AUTOMATED 82 10^3/uL (150-450)
[2023-01-07 06:35] LABS: BLOOD UREA NITROGEN 28 MG/DL (9-23); CALCIUM LEVEL 8.7 MG/DL (8.3-10.6); CARBON DIOXIDE LEVEL 31 MMOL/L (20-31); CHLORIDE LEVEL 103 MMOL/L (98-107); CREATININE FOR GFR 0.94 MG/DL (0.55-1.30); GLOMERULAR FILTRATION RATE > 60.0 (>39); GLUCOSE, FASTING 86 MG/DL (74-106); MAGNESIUM LEVEL 1.9 MG/DL (1.8-2.4); SODIUM LEVEL 139 MMOL/L (136-145)
[2023-01-08 04:30] VITALS: BP 112/65; TEMP 97.9; O2SAT 98
[2023-01-09 05:29] VITALS: BP 115/85; TEMP 97.3; O2SAT 96
[2023-01-10 05:43] VITALS: BP 107/63; TEMP 97.7; O2SAT 96
[2023-01-10 15:26] VITALS: BP 134/86
[2023-01-10 20:39] VITALS: BP 128/86
[2023-01-11 06:00] VITALS: BP 112/65; TEMP 97.9; O2SAT 96
[2023-01-12 04:30] VITALS: BP 117/65; TEMP 97.7; O2SAT 96
[2023-01-13 04:40] VITALS: BP 101/59; TEMP 97.7; O2SAT 98
[2023-01-14 05:59] VITALS: BP 106/70; TEMP 98.1; O2SAT 97
[2023-01-14 16:37] VITALS: BP 120/66
[2023-01-15 04:59] VITALS: BP 102/54; TEMP 97.5; O2SAT 98
[2023-01-16 05:52] VITALS: BP 116/55; TEMP 97.9; O2SAT 98
[2023-01-16 20:18] VITALS: BP 118/75
[2023-01-17 06:00] VITALS: TEMP 98.6; O2SAT 97
[2023-01-17 16:19] VITALS: BP 102/58
[2023-01-18 06:00] VITALS: BP 110/55; TEMP 99; O2SAT 96
[2023-01-18 08:07] VITALS: TEMP 98.6
[2023-01-19 06:00] VITALS: BP 111/69; TEMP 98.1; O2SAT 97
[2023-01-20 05:25] VITALS: BP 110/63; TEMP 98.8; O2SAT 96
[2023-01-20] MEDS: SERTRALINE HCL 50 MG TAB PO SCH (19:28)
[2023-01-21 04:50] VITALS: BP 107/62; TEMP 97.9; O2SAT 95
[2023-01-21 14:00] VITALS: BP 125/68; TEMP 97.5; O2SAT 98
[2023-01-22 05:08] VITALS: BP 131/69; TEMP 97.5; O2SAT 96
[2023-01-22 06:00] VITALS: BP 112/66; TEMP 97.5; O2SAT 97
[2023-01-23 05:23] VITALS: BP 126/68; TEMP 98.6; O2SAT 96
[2023-01-23 15:41] VITALS: BP 121/79
[2023-01-24 06:35] VITALS: BP 115/59; TEMP 98; O2SAT 96
[2023-01-24 16:00] VITALS: BP 118/60
[2023-01-25 05:19] VITALS: BP 115/69; TEMP 97.7; O2SAT 96
[2023-01-26 04:30] VITALS: BP 109/66; TEMP 97.5; O2SAT 95
[2023-01-27 04:50] VITALS: BP 110/65; TEMP 97.5; O2SAT 96
[2023-01-28 05:31] VITALS: BP 106/64; TEMP 96.6; O2SAT 96
[2023-01-29 06:00] VITALS: BP 103/69; TEMP 97.3; O2SAT 96
[2023-01-30 04:06] VITALS: BP 119/60; TEMP 98.6; O2SAT 95
[2023-01-31 08:30] VITALS: BP 92/60; TEMP 98.8; O2SAT 96
[2023-01-31 10:33] VITALS: BP 138/63
[2023-01-31 14:00] VITALS: BP 105/54; TEMP 97.2; O2SAT 96
[2023-02-01 05:30] VITALS: BP 105/59; TEMP 98.1; O2SAT 97
[2023-02-02 06:33] VITALS: BP 107/57; TEMP 97.7; O2SAT 96
[2023-02-03 06:10] VITALS: BP 105/58; TEMP 97.7; O2SAT 95
[2023-02-04 06:00] VITALS: BP 108/72; TEMP 97.7; O2SAT 97
[2023-02-04 21:00] VITALS: BP 102/69; TEMP 98.6; O2SAT 97
[2023-02-05 06:38] VITALS: BP 123/70; TEMP 98.6; O2SAT 97
[2023-02-05 21:00] VITALS: BP 127/78; TEMP 97.7; O2SAT 97
[2023-02-06 05:15] VITALS: BP 129/69; TEMP 97.7; O2SAT 96
[2023-02-07 05:10] VITALS: BP 120/72; TEMP 97.9; O2SAT 94
[2023-02-07] MEDS: guaiFENesin ER TABLET 600 MG TAB PO SCH (10:51)
[2023-02-08 06:00] VITALS: BP 106/63; TEMP 97.9; O2SAT 94
[2023-02-08 08:27] VITALS: BP 121/81
[2023-02-08 21:00] VITALS: BP 123/64; TEMP 98.8; O2SAT 94
[2023-02-09 04:50] VITALS: BP 109/59; TEMP 98.6; O2SAT 92
[2023-02-09 16:40] VITALS: BP 121/70; TEMP 98.6
[2023-02-09 21:00] VITALS: BP 120/72; TEMP 98.8; O2SAT 93
[2023-02-10 06:00] VITALS: BP 112/58; TEMP 97.9; O2SAT 93
[2023-02-11 05:31] VITALS: BP 106/64; TEMP 97.3; O2SAT 93
[2023-02-11 15:54] VITALS: TEMP 101.1
[2023-02-11] MEDS: BENZONATATE 100MG CAPSULE PO PRN (15:56)
[2023-02-11 16:10] VITALS: TEMP 100.1
[2023-02-11] MEDS: IBUPROFEN 400MG TAB PO ONE (18:30)
[2023-02-11 21:20] VITALS: TEMP 98.8
[2023-02-12 05:57] VITALS: BP 104/57; TEMP 100.4; O2SAT 96
[2023-02-12 08:00] VITALS: TEMP 99.1
[2023-02-12 15:30] VITALS: TEMP 98.3
[2023-02-13 05:42] VITALS: BP 121/66; TEMP 98.1; O2SAT 93
[2023-02-13 20:24] VITALS: TEMP 99.7
[2023-02-14 06:00] VITALS: BP 132/73; TEMP 98.8; O2SAT 94
[2023-02-14 09:40] VITALS: BP 118/66
[2023-02-14 17:39] VITALS: BP 130/73
[2023-02-14 19:59] VITALS: BP 113/65; TEMP 98.4; O2SAT 92
[2023-02-15] VITALS (15 sets, daily range): BP systolic 114; BP diastolic 63–65; TEMP 96.9–98.4; O2SAT 86–95
[2023-02-15] MEDS: IPRATROPIUM 0.5MG/ALBUTEROL 2.5MG INH SOL UD 3ML (DUONEB) NEB SCH (13:30)
[2023-02-15] MEDS: predniSONE 20 MG TAB PO SCH (13:44)
[2023-02-15] MEDS: AZITHROMYCIN 250MG TABLET PO SCH (13:44)
[2023-02-15] MEDS: MIRTAZAPINE 15 MG TAB PO SCH (20:03)
[2023-02-15] MEDS: guaiFENesin ER TABLET 600 MG TAB PO SCH (20:03)
[2023-02-16 00:18] VITALS: O2SAT 92
[2023-02-16 05:43] VITALS: BP 121/66; TEMP 97.8; O2SAT 94
[2023-02-16 10:40] VITALS: O2SAT 97
[2023-02-16 10:45] VITALS: O2SAT 95
[2023-02-16 11:26] VITALS: O2SAT 94
[2023-02-17 05:25] VITALS: BP 114/85; TEMP 97.5; O2SAT 94
[2023-02-17 06:00] VITALS: BP 116/77; TEMP 97.5; O2SAT 94
[2023-02-18 06:00] VITALS: BP 117/75; TEMP 97.3; O2SAT 96
[2023-02-19 04:50] VITALS: BP 107/65; TEMP 97.5; O2SAT 95
[2023-02-20 05:31] VITALS: BP 116/61; TEMP 98.1; O2SAT 94
[2023-02-21 06:00] VITALS: BP 128/76; TEMP 97.5; O2SAT 96
[2023-02-22 06:18] VITALS: BP 113/63; TEMP 98.8; O2SAT 96
[2023-02-23 05:10] VITALS: BP 108/53; TEMP 97.7; O2SAT 95
[2023-02-23 16:19] VITALS: BP 150/78
[2023-02-24 04:50] VITALS: BP 104/65; TEMP 97.7; O2SAT 92
[2023-02-24 20:15] VITALS: BP 106/60
[2023-02-25 06:00] VITALS: BP 105/83; TEMP 97.7; O2SAT 95
[2023-02-26 05:31] VITALS: BP 109/57; TEMP 99; O2SAT 94
[2023-02-27 06:40] VITALS: BP 117/61; TEMP 98.1; O2SAT 95
[2023-02-28 06:00] VITALS: BP 98/53; TEMP 98.1; O2SAT 94
[2023-03-01 06:00] VITALS: BP 115/66; TEMP 98.1; O2SAT 95
[2023-03-01] MEDS ORDERED: IPRATROPIUM 0.5MG/ALBUTEROL 2.5MG INH SOL UD 3ML (DUONEB) NEB PRN (12:00)
[2023-03-01 19:33] VITALS: BP 94/60
[2023-03-02 06:00] VITALS: BP 106/63; TEMP 97.3; O2SAT 93
[2023-03-02 20:05] VITALS: BP 117/69
[2023-03-03 05:44] VITALS: BP 97/55; TEMP 97.7; O2SAT 93
[2023-03-04 06:00] VITALS: BP 99/56; TEMP 97.2; O2SAT 94
[2023-03-05 04:50] VITALS: BP 107/63; TEMP 97.5; O2SAT 93
[2023-03-06 05:07] VITALS: BP 104/63; TEMP 97.3; O2SAT 94
[2023-03-07 05:49] VITALS: BP 100/60; TEMP 97.5; O2SAT 95
[2023-03-08 05:48] VITALS: BP 112/55; TEMP 99; O2SAT 96
[2023-03-09 05:16] VITALS: BP 114/64; TEMP 97.7; O2SAT 96
[2023-03-10 06:00] VITALS: BP 98/57; TEMP 97.7; O2SAT 97
[2023-03-10 15:20] VITALS: BP 102/57
[2023-03-11 06:00] VITALS: BP 111/69; TEMP 97.7; O2SAT 95
[2023-03-11 16:46] VITALS: BP 132/71
[2023-03-11 20:29] VITALS: BP 129/73
[2023-03-12 05:54] VITALS: BP 121/73; TEMP 97.9; O2SAT 98
[2023-03-12 08:38] VITALS: BP 120/73
[2023-03-12 16:11] VITALS: BP 117/70
[2023-03-13 06:00] VITALS: BP 116/66; TEMP 97.3; O2SAT 93
[2023-03-14 06:00] VITALS: BP 101/59; TEMP 97.9; O2SAT 91
[2023-03-14 17:04] VITALS: BP 138/86
[2023-03-15 06:00] VITALS: BP 132/61; TEMP 97.7; O2SAT 96
[2023-03-16 06:00] VITALS: BP 123/60; TEMP 97.7; O2SAT 94
[2023-03-17 05:28] VITALS: BP 110/73; TEMP 98.4; O2SAT 94
[2023-03-18 06:02] VITALS: BP 115/63; TEMP 97.9; O2SAT 94
[2023-03-19 06:00] VITALS: BP 120/88; TEMP 97.5; O2SAT 96
[2023-03-19 20:19] VITALS: BP 113/51
[2023-03-20 05:46] VITALS: BP 119/59; TEMP 98.2; O2SAT 95
[2023-03-21 05:40] VITALS: BP 107/64; TEMP 97.3; O2SAT 96
[2023-03-22 06:00] VITALS: BP 118/63; TEMP 97.7; O2SAT 97
[2023-03-23 05:48] VITALS: BP 103/52; TEMP 97.9; O2SAT 96
[2023-03-24 05:16] VITALS: BP 104/59; TEMP 97.7; O2SAT 97
[2023-03-25 06:19] VITALS: BP 120/73; TEMP 97.9; O2SAT 96
[2023-03-25 21:08] VITALS: BP 102/63
[2023-03-26 06:18] VITALS: BP 106/65; TEMP 97.7; O2SAT 96
[2023-03-27 05:55] VITALS: BP 108/63; TEMP 94.8; O2SAT 96
[2023-03-28 06:00] VITALS: BP 112/61; TEMP 98.2; O2SAT 97
[2023-03-28 09:34] VITALS: BP 110/67; TEMP 97.7; O2SAT 95
[2023-03-29 05:58] VITALS: BP 113/78; TEMP 97.5; O2SAT 93
[2023-03-30 06:32] VITALS: BP 117/68; TEMP 97.9; O2SAT 94
[2023-03-31 04:47] VITALS: BP 102/68; TEMP 97.7; O2SAT 95
[2023-03-31 15:53] VITALS: BP 116/59
[2023-03-31 20:15] VITALS: BP 90/68
[2023-03-31 20:17] VITALS: BP 96/66
[2023-03-31 22:00] VITALS: BP 116/59
[2023-04-01 06:00] VITALS: BP 111/60; TEMP 97.3; O2SAT 96
[2023-04-02 06:00] VITALS: BP 120/66; TEMP 97.5; O2SAT 96
[2023-04-03 05:17] VITALS: BP 105/75; TEMP 97.9; O2SAT 96
[2023-04-04 06:00] VITALS: BP 115/55; TEMP 97.7; O2SAT 97
[2023-04-04 15:41] VITALS: BP 105/65
[2023-04-05 06:31] VITALS: BP 120/66; TEMP 97.9; O2SAT 96
[2023-04-05 16:26] VITALS: BP 102/61
[2023-04-05 20:12] VITALS: BP 112/70
[2023-04-06 13:30] VITALS: BP 102/45
[2023-04-06 20:07] VITALS: BP 118/64
[2023-04-07 01:07] VITALS: BP 103/61; TEMP 97.5; O2SAT 97
[2023-04-07 05:09] VITALS: TEMP 97.3
[2023-04-07 05:10] VITALS: BP 105/61; TEMP 97.3; O2SAT 97
[2023-04-07 05:55] LABS: HEMATOCRIT 39.7 % (36.0-47.0); HEMOGLOBIN 13.1 g/dl (12.0-15.5); MEAN CORPUSCULAR HEMOGLOBIN 32.1 pg (27.0-33.0); MEAN CORPUSCULAR VOLUME 97.3 fl (80.0-96.0); PLATELET COUNT, AUTOMATED 89 10^3/uL (150-450); RED BLOOD COUNT 4.08 10^6/uL (4.00-5.40); WHITE BLOOD COUNT 5.4 10^3/uL (4.0-10.0)
[2023-04-07 06:21] LABS: ALBUMIN 3.2 G/DL (3.2-5.2); ALKALINE PHOSPHATASE 72 U/L (46-116); ALT/SGPT 18 U/L (7.0-40); AST/SGOT 18 U/L (<34); BILIRUBIN,TOTAL 0.8 MG/DL (0.3-1.2); BLOOD UREA NITROGEN 18 MG/DL (9-23); CARBON DIOXIDE LEVEL 32 MMOL/L (20-31); CHLORIDE LEVEL 106 MMOL/L (98-107); CREATININE FOR GFR 0.97 MG/DL (0.55-1.30); GLOMERULAR FILTRATION RATE > 60.0 (>39); GLUCOSE, FASTING 95 MG/DL (74-106); MAGNESIUM LEVEL 1.9 MG/DL (1.8-2.4); POTASSIUM SERUM 4.5 MMOL/L (3.5-5.1); SODIUM LEVEL 143 MMOL/L (136-145); TOTAL PROTEIN 5.8 G/DL (5.7-8.2)
[2023-04-08 05:30] VITALS: BP 114/63; TEMP 97.5; O2SAT 94
[2023-04-09 05:12] VITALS: BP 122/67; TEMP 97.7; O2SAT 95
[2023-04-09 15:25] VITALS: BP 98/64
[2023-04-10 05:21] VITALS: BP 116/79; TEMP 97.7; O2SAT 96
[2023-04-10] MEDS: CEPACOL LOZENGE PO PRN (16:47)
[2023-04-11 06:00] VITALS: BP 107/65; TEMP 98.1; O2SAT 96
[2023-04-11 16:00] VITALS: BP 115/85; TEMP 97.9
[2023-04-11 17:42] LABS: BASO # 0.1 10^3/uL (0.0-0.2); BASO % 0.7 % (0.0-1.0); EOS # 0.1 10^3/uL (0.0-0.5); EOS % 1.4 % (0.0-3.0); HEMATOCRIT 41.4 % (36.0-47.0); HEMOGLOBIN 13.5 g/dl (12.0-15.5); LYMPH # 2.8 10^3/uL (1.5-5.0); LYMPH % 34.2 % (24.0-44.0); MEAN CORPUSCULAR HEMOGLOBIN 31.6 pg (27.0-33.0); MEAN CORPUSCULAR HGB CONC 32.6 g/dl (32.0-36.5); MONO # 0.5 10^3/uL (0.0-0.8); MONO % 6.7 % (2.0-8.0); NEUTROPHILS # 4.6 10^3/uL (1.5-8.5); NEUTROPHILS % 56.8 % (36.0-66.0); PLATELET COUNT, AUTOMATED 112 10^3/uL (150-450); RED BLOOD COUNT 4.27 10^6/uL (4.00-5.40); WHITE BLOOD COUNT 8.1 10^3/uL (4.0-10.0)
[2023-04-11 18:04] LABS: BLOOD UREA NITROGEN 21 MG/DL (9-23); CALCIUM LEVEL 9.2 MG/DL (8.3-10.6); CARBON DIOXIDE LEVEL 32 MMOL/L (20-31); CHLORIDE LEVEL 105 MMOL/L (98-107); CREATININE FOR GFR 1.01 MG/DL (0.55-1.30); GLOMERULAR FILTRATION RATE 57.5 (>39); GLUCOSE, FASTING 91 MG/DL (74-106); POTASSIUM SERUM 4.2 MMOL/L (3.5-5.1); SODIUM LEVEL 141 MMOL/L (136-145)
[2023-04-11 18:10] LABS: PROCALCITONIN <0.04 ng/ml
[2023-04-12 06:00] VITALS: BP 124/69; TEMP 98.1; O2SAT 98
[2023-04-13 06:00] VITALS: BP 116/60; TEMP 97.9; O2SAT 94
[2023-04-14 05:12] VITALS: BP 109/77; TEMP 97.7; O2SAT 96
[2023-04-15 06:47] VITALS: BP 113/64; TEMP 97.9; O2SAT 97
[2023-04-15 13:30] VITALS: BP 101/66; TEMP 97.9; O2SAT 95
[2023-04-15 16:48] VITALS: BP 102/69
[2023-04-15 21:00] VITALS: BP 102/63; TEMP 97.7; O2SAT 96
[2023-04-16 05:10] VITALS: BP 115/85; TEMP 97.3; O2SAT 95
[2023-04-16 16:15] VITALS: BP 126/70
[2023-04-17 06:27] VITALS: BP 99/56; TEMP 97.5; O2SAT 97
[2023-04-17 15:56] VITALS: BP 103/73
[2023-04-18 06:36] VITALS: BP 114/65; TEMP 97.3; O2SAT 98
[2023-04-19 06:30] VITALS: BP 127/61; TEMP 97.7; O2SAT 96
[2023-04-19 15:57] VITALS: BP 114/76
[2023-04-20 16:12] VITALS: BP 106/62
[2023-04-21 06:00] VITALS: BP 109/63; TEMP 97.7; O2SAT 96
[2023-04-21 09:05] VITALS: BP 124/65
[2023-04-21 16:11] VITALS: BP 137/72
[2023-04-22 05:26] VITALS: BP 132/72; TEMP 97.7; O2SAT 95
[2023-04-22 15:59] VITALS: BP 110/80
[2023-04-23 04:59] VITALS: BP 112/60; TEMP 96.4; O2SAT 94
[2023-04-23 15:25] VITALS: BP 104/75
[2023-04-24 04:30] VITALS: BP 124/67; TEMP 97.9; O2SAT 95
[2023-04-25 06:10] VITALS: BP 113/54; TEMP 97.7; O2SAT 97
[2023-04-25 08:11] VITALS: BP 123/58
[2023-04-25] MEDS ORDERED: FERR32TA PO (08:45)
[2023-04-25] MEDS ORDERED: VITA250T7 PO (08:45)
[2023-04-25] MEDS ORDERED: MAGN400T2 PO (08:45)
[2023-04-25] MEDS ORDERED: THIA100TA PO (08:45)
[2023-04-25] MEDS ORDERED: Multivitamins PO (08:45)
[2023-04-25] MEDS ORDERED: ELIQ5TAB PO (08:45)
[2023-04-25] MEDS ORDERED: SERT50TA29 PO (08:45)
[2023-04-25] MEDS ORDERED: MIRT-10 PO (08:45)
[2023-04-25] MEDS ORDERED: METO1TAB87 PO (08:45)
[2023-04-25] MEDS ORDERED: MIDO5TA PO (08:45)
[2023-04-25] MEDS ORDERED: DIGO0.123 PO (08:45)
== END 2023-04-25 11:29 | DRG 640 ==
LOC: M ED 15:04 → M ED INP 19:09 → M PCU 06-21 00:12 → M MSPAV 06-23 10:28 → M PCU 06-25 19:53 → M MSPAV 06-28 16:43
PROVIDERS: ADMIT Internal Medicine; ATTEND Internal Medicine
PROC: B246ZZZ Ultrasonography of Right and Left Heart (ICD-10-PCS; principal; 2022-06-21)
DX: E51.2 Wernicke's encephalopathy (principal); J15.69 Pneumonia due to other Gram-negative bacteria; G93.41 Metabolic encephalopathy; U07.1 COVID-19; E43 Unspecified severe protein-calorie malnutrition; A41.9 Sepsis, unspecified organism; R65.20 Severe sepsis without septic shock; N39.0 Urinary tract infection, site not specified; R64 Cachexia; M48.56XA Collapsed vertebra, not elsewhere classified, lumbar region, initial encounter for fracture; Z68.1 Body mass index [BMI] 19.9 or less, adult; D62 Acute posthemorrhagic anemia; I10 Essential (primary) hypertension; E78.5 Hyperlipidemia, unspecified; F10.20 Alcohol dependence, uncomplicated; R62.7 Adult failure to thrive; R63.6 Underweight; I48.91 Unspecified atrial fibrillation; B96.20 Unspecified Escherichia coli [E. coli] as the cause of diseases classified elsewhere; R31.0 Gross hematuria; M72.2 Plantar fascial fibromatosis; I95.89 Other hypotension; E83.42 Hypomagnesemia; D51.3 Other dietary vitamin B12 deficiency anemia; R26.89 Other abnormalities of gait and mobility; R29.6 Repeated falls; F32.A Depression, unspecified; F04 Amnestic disorder due to known physiological condition; D69.6 Thrombocytopenia, unspecified; D52.9 Folate deficiency anemia, unspecified; Z79.899 Other long term (current) drug therapy